=== PATIENT | female | born 1975 | race Two or more races ===

== ENCOUNTER 2023-07-16 17:48 | Inpatient (IN) | payer OTHER ==
[~2023-07-16] VITALS: Ht 152.4 cm; Wt 72.0 kg
[2023-07-16 18:48] LABS: Basophils # (auto) 0.1 10 ^3/uL (0-0.2); Eosinophils # (auto) 0 10 ^3/uL (0-0.8); Hematocrit 27.1 % (36.0-46.0); Hemoglobin 8.4 g/dL (12.2-16.2); Monocytes # (auto) 1.1 10 ^3/uL (0-1.3); Red Blood Cells 3.32 10^6/uL (4.0-5.20)
[2023-07-16 18:50] LABS: Basophils % (auto) 0.4 % (0.0-2.0); Lymphocytes # (auto) 1.4 10 ^3/uL (0.4-5.4); Mean Corpuscular Hemoglobin 25.2 pg (28.0-32.0); Mean Corpuscular Hgb Conc. 30.9 g/dL (32.0-36.0); Mean Corpuscular Volume 81.7 fL (80.0-100.0); Monocytes % (auto) 5.6 % (0.0-12.0); Neutrophils # (auto) 17.3 10 ^3/uL (1.6-8.6); Nucleated Red Blood Cells % 0.1 %; White Blood Cell 19.9 10^3/uL (4.4-10.8)
[2023-07-16 18:56] LABS: Red Cell Distribution Width 20.2 % (11.8-14.3)
[2023-07-16 19:04] LABS: Alanine Aminotransferase 223 U/L (7-40); Alkaline Phosphatase 127 U/L (46-116); Anion Gap 16 (5-15); Aspartate Aminotransferase 257 U/L (13-40); BUN/Creatinine Ratio 18.7 (10.0-20.0); Blood Alcohol < 3.0 mg/dL (<10); Blood Urea Nitrogen 67 mg/dL (9-23); Calcium 7.8 mg/dL (8.5-10.1); Carbon Dioxide 19 mmol/L (20-30); Chloride 111 mmol/L (98-107); Glucose 107 mg/dL (74-106); Potassium 3.6 mmol/L (3.5-5.1); Sodium 146 mmol/L (136-145)
[2023-07-16 19:05] LABS: Bilirubin, Total 0.7 mg/dL (0.2-1.0); Total Protein 5.7 g/dL (5.7-8.2)
[2023-07-16] MEDS: SODIUM CHLORIDE 0.9% 1,000 ML IV ONE (19:30)
[2023-07-16 19:33] VITALS: PULSE 106; RESP 26; O2SAT 100
[2023-07-16] MEDS: DEXTROSE 50% SYRINGE 50 ML IV ONE (20:23)
[2023-07-16] MEDS: PIPERACILLIN-TAZOB 3.375GM 100 ML IV ONE (20:32)
[2023-07-16] MEDS: D5W 5% 1,000 ML IV ONE (20:32)
[2023-07-16] MEDS: PIPERACILLIN-TAZOB 3.375GM 100 ML IV SCH (20:32)
[2023-07-16] MEDS: SODIUM CHLORIDE 0.9% 1,750 ML IV ONE (20:33)
[2023-07-16] MEDS: CALCIUM GLUC 1,000mg/50ml-NS 50 ML IV ONE (20:33)
[2023-07-16] MEDS ORDERED: DEXTROSE (50%) 50ML SYRG IV PRN (21:15)
[2023-07-16] MEDS ORDERED: ONDANSETRON HCL 4 MG/2 ML VIAL IV PRN (21:15)
[2023-07-16] MEDS ORDERED: DOCUSATE SOD 100 MG CAP PO PRN (21:15)
[2023-07-16] MEDS ORDERED: ACETAMINOPHEN 325 MG TAB PO PRN (21:15)
[2023-07-16] MEDS ORDERED: HYDROcodone-ACET 5/325MG TAB PO PRN (21:15)
[2023-07-16] MEDS: LACTATED RINGER'S 1,000 ML IV ONE (21:30)
[2023-07-16] MEDS: ACCU-CHEK COMFORT CURVE STRIP VI SCH (21:48)
[2023-07-16] MEDS ORDERED: ATORVASTATIN 20 MG TAB PO SCH (22:00)
[2023-07-16] MEDS: InsuLIN REG 1unit/0.01ml Soln (100units/ml) SC SCH (22:00)
[2023-07-16] MEDS ORDERED: NITROGLYCERIN 0.4 MG SL TAB SL PRN (22:45)
[2023-07-16] MEDS ORDERED: MORPHINE SULFATE INJ 2 MG/ml SYRG IV PRN (22:45)
[2023-07-16] MEDS: HEPARIN SODIUM (PORCINE) 5000 UNITS/ML 1ML VIAL SC SCH (23:18)
[2023-07-16] MEDS: levETIRAcetam 500 mg/100ml 100 ML IV SCH (23:18)
[2023-07-17] MEDS ORDERED: IBUPROFEN 600 MG TAB PO PRN
[2023-07-17 04:31] LABS: Urine Bacteria FEW /hpf (None Seen); Urine Blood 2+ /uL (Negative); Urine Clarity HAZY (Clear); Urine Color Colorless (Yellow); Urine Protein, UAD 2+ (Negative); Urine Urobilinogen Normal (Negative); Urine WBC 328 /hpf (0 - 5); Urine WBC Clumps PRESENT /hpf (None Seen); Urine pH 6.5 (5.0-8.0)
[2023-07-17] MEDS: LACTULOSE 20Gm/30ML SOLN PO SCH (04:46)
[2023-07-17] MEDS: InsuLIN REG 1unit/0.01ml Soln (100units/ml) SC SCH (06:30)
[2023-07-17 06:55] LABS: Basophils # (auto) 0.1 10 ^3/uL (0-0.2); Basophils % (auto) 0.4 % (0.0-2.0); Eosinophils # (auto) 0 10 ^3/uL (0-0.8); Hemoglobin 7.3 g/dL (12.2-16.2); Lymphocytes # (auto) 1.4 10 ^3/uL (0.4-5.4); Monocytes # (auto) 0.9 10 ^3/uL (0-1.3); Red Cell Distribution Width 20.2 % (11.8-14.3)
[2023-07-17 06:59] LABS: Eosinophils % (auto) 0.1 % (0.0-7.0); Lymphocytes % (auto) 7.9 % (10.0-50.0); Mean Corpuscular Hemoglobin 26.1 pg (28.0-32.0); Mean Corpuscular Hgb Conc. 31.6 g/dL (32.0-36.0); Mean Corpuscular Volume 82.5 fL (80.0-100.0); Monocytes % (auto) 5.3 % (0.0-12.0); Neutrophils # (auto) 14.9 10 ^3/uL (1.6-8.6); Neutrophils % (auto) 86.3 % (37.0-80.0); Red Blood Cells 2.79 10^6/uL (4.0-5.20); White Blood Cell 17.3 10^3/uL (4.4-10.8)
[2023-07-17 07:10] LABS: Alanine Aminotransferase 173 U/L (7-40); Albumin 2.6 g/dL (3.2-4.8); Alkaline Phosphatase 126 U/L (46-116); Anion Gap 15 (5-15); Aspartate Aminotransferase 186 U/L (13-40); BUN/Creatinine Ratio 17.5 (10.0-20.0); Bilirubin, Total 0.8 mg/dL (0.2-1.0); Blood Urea Nitrogen 59 mg/dL (9-23); Calcium 7.1 mg/dL (8.5-10.1); Carbon Dioxide 17 mmol/L (20-30); Chloride 116 mmol/L (98-107); Glucose 150 mg/dL (74-106); Potassium 3.1 mmol/L (3.5-5.1); Sodium 148 mmol/L (136-145)
[2023-07-17 09:58] VITALS: PULSE 103; RESP 22; O2SAT 98
[2023-07-17] MEDS ORDERED: LORazepam 2MG/ML-1ML VIAL IV PRN (10:00)
[2023-07-17] MEDS: POTASSIUM CHL 20MEQ/100ML 100 ML IV SCH (10:10)
[2023-07-17] MEDS: ASPirin 81 mg TAB PO SCH (10:10)
[2023-07-17] MEDS: POTASSIUM CHL 20 Meq TABLET PO ONE (10:11)
[2023-07-17] MEDS: MULTIPLE VITAMIN TAB PO SCH (10:13)
[2023-07-17 12:01] LABS: Magnesium 1.4 mg/dL (1.6-2.6)
[2023-07-17 12:03] LABS: Phosphorus 4.8 mg/dL (2.4-5.1)
[2023-07-17] MEDS: hydrALAZINE HCL 20 MG/ML VL IV PRN (12:34)
[2023-07-17] MEDS: MAGNESIUM SULFATE 1GM/100ML 100 ML IV SCH (15:13)
[2023-07-17 19:30] VITALS: PULSE 105; RESP 22; O2SAT 95
[2023-07-18] VITALS (23 sets, daily range): BP systolic 123–183; BP diastolic 56–122; PULSE 85–101; RESP 16–25; TEMP 97.6–99.6; O2SAT 99–100
[2023-07-18 05:40] LABS: Chloride 118 mmol/L (98-107); Potassium 3.8 mmol/L (3.5-5.1); Sodium 150 mmol/L (136-145)
[2023-07-18 05:41] LABS: Anion Gap 14 (5-15); Calcium 7.6 mg/dL (8.7-10.4); Carbon Dioxide 18 mmol/L (20-30)
[2023-07-18 05:46] LABS: BUN/Creatinine Ratio 13.9 (10.0-20.0); Glucose 125 mg/dL (74-106)
[2023-07-18 05:47] LABS: Magnesium 2.1 mg/dL (1.6-2.6)
[2023-07-18 05:49] LABS: Blood Urea Nitrogen 47 mg/dL (9-23); Hematocrit 25.9 % (36.0-46.0); Hemoglobin 7.9 g/dL (12.2-16.2); Mean Corpuscular Hemoglobin 25.7 pg (28.0-32.0); Mean Corpuscular Hgb Conc. 30.7 g/dL (32.0-36.0); Mean Corpuscular Volume 83.6 fL (80.0-100.0); Red Blood Cells 3.09 10^6/uL (4.0-5.20)
[2023-07-18 06:00] LABS: Red Cell Distribution Width 20.1 % (11.8-14.3)
[2023-07-18 06:02] LABS: Basophils % (manual) 0 (0.0-2.0); Blast Cells 0; Eosinophils % (manual) 0 (0-7); Myelocytes % 0; Promyelocytes % 0; Reactive Lymphocytes 0
[2023-07-18] MEDS: CALCIUM GLUC 1,000mg/50ml-NS 50 ML IV ONE (06:32)
[2023-07-18 07:29] LABS: INR 1.04 (0.9-1.15); Partial Thromboplastin Time 28.4 SEC (24.5-34.5); Prothrombin Time 10.9 sec (9.3-11.8)
[2023-07-18 08:06] LABS: Complement C3 143 mg/dL (82-167)
[2023-07-18 12:33] LABS: Band Neutrophils % (manual) 4; Lymphocytes % (manual) 13 (10.0-50.0); Metamyelocytes % 2; Monocytes % (manual) 5 (0-12)
[2023-07-18 12:34] LABS: Platelet Estimate Adequate
[2023-07-18] MEDS ORDERED: LORazepam 2MG/ML-1ML VIAL IV PRN (17:00)
[2023-07-18] MEDS: D5W 5% 1,000 ML IV SCH (19:29)
[2023-07-18] MEDS: SODIUM BICARB 8.4% 50Meq/50ml SYR Vial IV ONE (19:29)
[2023-07-18] MEDS: ETOMIDATE (2MG/ML) 20ML VIAL IV ONE ×2 (19:55→23:38)
[2023-07-18] MEDS ORDERED: LISI10TA34 PO (19:56)
[2023-07-18] MEDS ORDERED: NIFE1TAB31 PO (19:56)
[2023-07-18] MEDS ORDERED: GLIP10TA9 PO (19:56)
[2023-07-18] MEDS ORDERED: LOSA-534 PO (19:56)
[2023-07-18] MEDS ORDERED: FURO40TA4 PO (19:56)
[2023-07-18] MEDS ORDERED: ATOR-47 PO (19:56)
[2023-07-18] MEDS ORDERED: LEVO500T91 PO (19:56)
[2023-07-18] MEDS ORDERED: CLOP75TA70 PO (19:56)
[2023-07-18] MEDS: SUCCINYLCHOLINE CHLORIDE 20 MG/ML 10ML VIAL IV ONE (19:56)
[2023-07-18] MEDS ORDERED: HYDR12.59 PO (19:56)
[2023-07-18] MEDS ORDERED: LEVE500T3 PO (19:56)
[2023-07-18] MEDS ORDERED: METF-370 PO (19:56)
[2023-07-18 20:48] LABS: Base Excess -4.7 mmol/L (-2.0-2.0)
[2023-07-18 21:04] LABS: Basophils # (auto) 0.1 10 ^3/uL (0-0.2); Eosinophils # (auto) 0 10 ^3/uL (0-0.8); Hematocrit 22.5 % (36.0-46.0); Lymphocytes # (auto) 1.9 10 ^3/uL (0.4-5.4); Mean Corpuscular Hemoglobin 25.2 pg (28.0-32.0); Mean Corpuscular Hgb Conc. 30.8 g/dL (32.0-36.0); Monocytes % (auto) 7.1 % (0.0-12.0); Red Blood Cells 2.75 10^6/uL (4.0-5.20)
[2023-07-18 21:05] LABS: Basophils % (auto) 0.5 % (0.0-2.0); Eosinophils % (auto) 0.2 % (0.0-7.0); Lymphocytes % (auto) 13.4 % (10.0-50.0); Mean Corpuscular Volume 81.8 fL (80.0-100.0); Neutrophils # (auto) 11.2 10 ^3/uL (1.6-8.6); Neutrophils % (auto) 78.8 % (37.0-80.0); Red Cell Distribution Width 19.8 % (11.8-14.3); White Blood Cell 14.2 10^3/uL (4.4-10.8)
[2023-07-18 21:10] LABS: Hemoglobin 6.9 g/dL (12.2-16.2)
[2023-07-18 21:13] LABS: Chloride 120 mmol/L (98-107); Potassium 3.1 mmol/L (3.5-5.1); Sodium 153 mmol/L (136-145)
[2023-07-18 21:14] LABS: Anion Gap 14 (5-15); Calcium 7.8 mg/dL (8.7-10.4); Carbon Dioxide 19 mmol/L (20-30)
[2023-07-18 21:19] LABS: BUN/Creatinine Ratio 13.6 (10.0-20.0); Blood Urea Nitrogen 48 mg/dL (9-23); Glucose 113 mg/dL (74-106); INR 1.02 (0.9-1.15); Partial Thromboplastin Time 28.5 SEC (24.5-34.5); Prothrombin Time 10.7 sec (9.3-11.8)
[2023-07-18] MEDS: ENALAPRILAT 1.25 MG/ML-1ML VIAL IV ONE (21:38)
[2023-07-18] MEDS: ROCURONIUM 10MG/ML 10ML VIAL IV ONE (23:38)
[2023-07-19] VITALS (103 sets, daily range): BP systolic 108–188; BP diastolic 57–162; PULSE 79–99; RESP 10–38; TEMP 98–98.9; O2SAT 99–100
[2023-07-19 04:15] LABS: Amphetamine Screen, Urine Neg (NEGATIVE)
[2023-07-19 04:16] LABS: Barbiturate Scree,Urine Neg (NEGATIVE); Benzodiazephine Screen, Urine Neg (NEGATIVE); Cannabinoid Screen, Urine Neg (NEGATIVE); Cocaine Screen, Urine Neg (NEGATIVE); Opiate Scree,Urine Neg (NEGATIVE); Phencyclidine Screen, Urine Neg (NEGATIVE)
[2023-07-19 04:28] LABS: Creatinine, Urine 36.21 mg/dL (30.0-125.0)
[2023-07-19 04:30] LABS: Protein, Urine 291.9 mg/dL (0.0-11.9)
[2023-07-19 04:52] LABS: Chloride 119 mmol/L (98-107); Potassium 3.4 mmol/L (3.5-5.1); Sodium 153 mmol/L (136-145)
[2023-07-19 04:53] LABS: Anion Gap 14 (5-15); Calcium 8.1 mg/dL (8.5-10.1); Carbon Dioxide 20 mmol/L (20-30)
[2023-07-19 04:58] LABS: BUN/Creatinine Ratio 10.7 (10.0-20.0); Blood Urea Nitrogen 39 mg/dL (9-23); Glucose 201 mg/dL (74-106)
[2023-07-19 05:01] LABS: Hematocrit 31.2 % (36.0-46.0); Mean Corpuscular Hemoglobin 27.1 pg (28.0-32.0); Mean Corpuscular Volume 84.7 fL (80.0-100.0); Red Blood Cells 3.68 10^6/uL (4.0-5.20); Red Cell Distribution Width 18.3 % (11.8-14.3); White Blood Cell 16.8 10^3/uL (4.4-10.8)
[2023-07-19 05:04] LABS: Basophils % (manual) 0 (0.0-2.0); Blast Cells 0; Eosinophils % (manual) 0 (0-7); Metamyelocytes % 0; Myelocytes % 0; Promyelocytes % 0; Reactive Lymphocytes 0
[2023-07-19] MEDS: POTASSIUM CHL 20MEQ/100ML 100 ML IV ONE (05:15)
[2023-07-19 06:33] LABS: Anisocytosis Slight; Band Neutrophils % (manual) 6; Large Platelets FEW; Lymphocytes % (manual) 9 (10.0-50.0); Monocytes % (manual) 3 (0-12); Platelet Estimate Adequate
[2023-07-19 08:26] LABS: Base Excess -5.2 mmol/L (-2.0-2.0)
[2023-07-19 09:12] LABS: Hepatitis B Surface Antibody Negative (Negative)
[2023-07-19 09:22] LABS: Hepatitis B Surface Antigen Negative (Negative)
[2023-07-19 09:44] LABS: Hepatitis A Ab IgM Negative
[2023-07-19 10:07] LABS: Anti-Centromere B Antibody <0.2 AI (0.0-0.9); Anti-Jo-1 Antibody <0.2 AI (0.0-0.9); Anti-dsDNA Antibody 1 IU/mL (0-9); Antichromatin Antibody <0.2 AI (0.0-0.9); Antiscleroderma-70 Antibody <0.2 AI (0.0-0.9); RNP Antibody 0.2 AI (0.0-0.9); Sjogren's Anti-SS-A Antibody <0.2 AI (0.0-0.9); Sjogren's Anti-SS-B Antibody <0.2 AI (0.0-0.9); Smith Antibody <0.2 AI (0.0-0.9)
[2023-07-19 11:34] LABS: Hepatitis C Antibody Positive (Negative)
[2023-07-19] MEDS: ERTAPENEM SOD INJ 1 GM in SODIUM CHL 0.9% 50 ML IV ONE (15:28)
[2023-07-19] MEDS: D5W 5% 1,000 ML IV SCH (15:31)
[2023-07-19] MEDS: THIAMINE 100mg/ml INJ (200mg/2ml VIAL) IV ONE (16:24)
[2023-07-19] MEDS: LIDOCAINE 1% (LOCAL ANESTH.) PF 5ml SDV ID ONE (16:50)
[2023-07-19] MEDS: InsuLIN REG 1unit/0.01ml Soln (100units/ml) SC SCH (18:22)
[2023-07-19] MEDS: ACCU-CHEK COMFORT CURVE STRIP VI SCH (18:30)
[2023-07-19] MEDS: SODIUM CHLOR 0.9% PF (SALINE LOCK) 10ML VIAL/SYR IV SCH (21:58)
[2023-07-19] MEDS: LACTULOSE 20Gm/30ML SOLN PO SCH (21:58)
[2023-07-19] MEDS: MUPIROCIN 2% OINT 15gm or 22gm FOR MRSA NARES EACHNOSTRI SCH (21:59)
[2023-07-20] VITALS (107 sets, daily range): BP systolic 105–169; BP diastolic 50–123; PULSE 69–83; RESP 10–25; TEMP 98–99; O2SAT 100
[2023-07-20 04:12] LABS: Basophils # (auto) 0.1 10 ^3/uL (0-0.2); Basophils % (auto) 0.8 % (0.0-2.0); Eosinophils # (auto) 0.2 10 ^3/uL (0-0.8); Eosinophils % (auto) 2.5 % (0.0-7.0); Hematocrit 23.2 % (36.0-46.0); Hemoglobin 7.6 g/dL (12.2-16.2); Lymphocytes # (auto) 1.6 10 ^3/uL (0.4-5.4); Lymphocytes % (auto) 16.1 % (10.0-50.0); Mean Corpuscular Hgb Conc. 32.7 g/dL (32.0-36.0); Mean Corpuscular Volume 82.6 fL (80.0-100.0); Monocytes # (auto) 0.9 10 ^3/uL (0-1.3); Monocytes % (auto) 8.9 % (0.0-12.0); Neutrophils # (auto) 7.1 10 ^3/uL (1.6-8.6); Neutrophils % (auto) 71.7 % (37.0-80.0); Red Blood Cells 2.82 10^6/uL (4.0-5.20); Red Cell Distribution Width 17.6 % (11.8-14.3); White Blood Cell 9.9 10^3/uL (4.4-10.8)
[2023-07-20 04:32] LABS: Alanine Aminotransferase 67 U/L (7-40); Albumin 2.6 g/dL (3.2-4.8); Alkaline Phosphatase 104 U/L (46-116); Anion Gap 11 (5-15); Aspartate Aminotransferase 71 U/L (13-40); BUN/Creatinine Ratio 11.1 (10.0-20.0); Bilirubin, Total 0.3 mg/dL (0.2-1.0); Blood Urea Nitrogen 37 mg/dL (9-23); Calcium 7.6 mg/dL (8.5-10.1); Carbon Dioxide 20 mmol/L (20-30); Chloride 116 mmol/L (98-107); Glucose 140 mg/dL (74-106); Potassium 2.9 mmol/L (3.5-5.1); Total Protein 5.4 g/dL (5.7-8.2)
[2023-07-20 04:45] LABS: Sodium 147 mmol/L (136-145)
[2023-07-20 05:53] LABS: Base Excess -6.7 mmol/L (-2.0-2.0)
[2023-07-20] MEDS: POTASSIUM CHL 20MEQ/100ML 100 ML IV ONE ×2 (06:20→10:56)
[2023-07-20] MEDS: ERTAPENEM SOD INJ 0.5 GM in SODIUM CHL 0.9% 50 ML IV SCH (10:00)
[2023-07-20] MEDS: THIAMINE 100mg/ml INJ (200mg/2ml VIAL) IV SCH (10:53)
[2023-07-20] MEDS: CHOLECALCIFEROL (VITD3) 2,000 UNIT CAP/TAB PO SCH (11:02)
[2023-07-20 13:07] LABS: Cytoplasmic (C-ANCA) <1:20 titer (Neg:<1:20); Perinuclear (P-ANCA) <1:20 titer (Neg:<1:20)
[2023-07-20 18:06] LABS: Antiglomerular BM Antibody <0.2 units (0.0-0.9); Antimyeloperoxidase (MPO) Ab <0.2 units (0.0-0.9); Antiproteinase 3 (PR-3) Ab <0.2 units (0.0-0.9)
[2023-07-21] VITALS (106 sets, daily range): BP systolic 99–187; BP diastolic 27–136; PULSE 76–88; RESP 13–29; TEMP 98.4–99; O2SAT 99–100
[2023-07-21 04:04] LABS: Chloride 112 mmol/L (98-107); Potassium 3.3 mmol/L (3.5-5.1); Sodium 141 mmol/L (136-145)
[2023-07-21 04:05] LABS: Anion Gap 12 (5-15); Calcium 7.4 mg/dL (8.7-10.4); Carbon Dioxide 17 mmol/L (20-30)
[2023-07-21 04:10] LABS: BUN/Creatinine Ratio 9.1 (10.0-20.0); Glucose 117 mg/dL (74-106); Magnesium 1.6 mg/dL (1.6-2.6)
[2023-07-21 04:29] LABS: Blood Urea Nitrogen 27 mg/dL (9-23)
[2023-07-21] MEDS: POTASSIUM CHL 20MEQ/100ML 100 ML IV SCH (05:07)
[2023-07-21 06:59] LABS: Basophils # (auto) 0.1 10 ^3/uL (0-0.2); Eosinophils # (auto) 0.2 10 ^3/uL (0-0.8); Hemoglobin 7.9 g/dL (12.2-16.2); Lymphocytes # (auto) 1.5 10 ^3/uL (0.4-5.4); Mean Corpuscular Volume 83.2 fL (80.0-100.0); Monocytes # (auto) 0.9 10 ^3/uL (0-1.3)
[2023-07-21 07:01] LABS: Basophils % (auto) 0.8 % (0.0-2.0); Eosinophils % (auto) 2.4 % (0.0-7.0); Lymphocytes % (auto) 16.5 % (10.0-50.0); Mean Corpuscular Hemoglobin 27.4 pg (28.0-32.0); Monocytes % (auto) 9.3 % (0.0-12.0); Neutrophils # (auto) 6.6 10 ^3/uL (1.6-8.6); Nucleated Red Blood Cells % 0.2 %; Red Blood Cells 2.88 10^6/uL (4.0-5.20); Red Cell Distribution Width 17.7 % (11.8-14.3); White Blood Cell 9.3 10^3/uL (4.4-10.8)
[2023-07-21] MEDS ORDERED: SODIUM BICARB 50mEq/50ml Vial 50 ML in D5W 5% 1,000 ML IV SCH (11:30)
[2023-07-21] MEDS: MAGNESIUM SULFATE 1GM/100ML 100 ML IV SCH (12:15)
[2023-07-21] MEDS: SODIUM BICARB 50mEq/50ml Vial 50 ML in D5W 5% 1,000 ML IV SCH (14:30)
[2023-07-21] MEDS: POTASSIUM EFFERVESENT TAB 25 MEQ GT ONE (14:46)
[2023-07-21] MEDS: Nepro With Carb Steady 1 Liter Bottle GT SCH (20:27)
[2023-07-22] VITALS (56 sets, daily range): BP systolic 114–171; BP diastolic 58–108; PULSE 81–92; RESP 13–26; TEMP 98.8–99; O2SAT 98–100
[2023-07-22 04:41] LABS: Hematocrit 24.7 % (36.0-46.0); Hemoglobin 8.2 g/dL (12.2-16.2); Mean Corpuscular Volume 81.6 fL (80.0-100.0); Red Blood Cells 3.03 10^6/uL (4.0-5.20); Red Cell Distribution Width 17.9 % (11.8-14.3); White Blood Cell 9.1 10^3/uL (4.4-10.8)
[2023-07-22 04:51] LABS: Basophils % (manual) 0 (0.0-2.0); Blast Cells 0; Metamyelocytes % 0; Myelocytes % 0; Promyelocytes % 0; Reactive Lymphocytes 0
[2023-07-22 05:03] LABS: Alanine Aminotransferase 40 U/L (7-40); Albumin 2.6 g/dL (3.2-4.8); Alkaline Phosphatase 86 U/L (46-116); Anion Gap 9 (5-15); Aspartate Aminotransferase 62 U/L (13-40); BUN/Creatinine Ratio 9.1 (10.0-20.0); Bilirubin, Total 0.2 mg/dL (0.2-1.0); Blood Urea Nitrogen 24 mg/dL (9-23); Calcium 7.7 mg/dL (8.5-10.1); Carbon Dioxide 21 mmol/L (20-30); Chloride 112 mmol/L (98-107); Glucose 100 mg/dL (74-106); Potassium 4.2 mmol/L (3.5-5.1); Sodium 142 mmol/L (136-145); Total Protein 5.6 g/dL (5.7-8.2)
[2023-07-22 06:15] LABS: Band Neutrophils % (manual) 2; Eosinophils % (manual) 3 (0-7); Lymphocytes % (manual) 21 (10.0-50.0); Monocytes % (manual) 9 (0-12); Platelet Estimate Adequate
[2023-07-22 06:17] LABS: Hypochromia Slight
[2023-07-22 06:19] LABS: Anisocytosis Slight
[2023-07-22 08:27] LABS: Base Excess -3.9 mmol/L (-2.0-2.0)
[2023-07-22] MEDS: MAGNESIUM SULFATE 1GM/100ML 100 ML IV ONE (16:25)
[2023-07-22] MEDS: SOD CHL 0.45% 1,000 ML IV SCH (16:25)
[2023-07-22 16:26] LABS: Protein, CSF 27.3 mg/dL (15-45)
[2023-07-22] MEDS: ALBUMIN 25% 100 ML IV SCH (16:26)
[2023-07-22 16:55] LABS: Description,CSF CLEAR
[2023-07-22 16:56] LABS: CSF White Blood Cells 0 CUMM (0-5)
[2023-07-22] MEDS: BUMETANIDE 2.5mg/10ml (0.25 mg/ml) INJ IV SCH (18:06)
[2023-07-22] MEDS: levETIRAcetam 1000 mg/100ml 100 ML IV SCH (21:37)
[2023-07-23] VITALS (60 sets, daily range): BP systolic 113–169; BP diastolic 53–130; PULSE 84–106; RESP 14–27; TEMP 98.7–99.9; O2SAT 97–100
[2023-07-23 07:01] LABS: Base Excess -0.9 mmol/L (-2.0-2.0)
[2023-07-23 08:35] LABS: Chloride 111 mmol/L (98-107); Potassium 3.3 mmol/L (3.5-5.1); Sodium 145 mmol/L (136-145)
[2023-07-23 08:36] LABS: Anion Gap 9 (5-15); Calcium 8.2 mg/dL (8.5-10.1); Carbon Dioxide 25 mmol/L (20-30)
[2023-07-23 08:41] LABS: BUN/Creatinine Ratio 9.7 (10.0-20.0); Blood Urea Nitrogen 24 mg/dL (9-23); Glucose 105 mg/dL (74-106)
[2023-07-23 09:26] LABS: Basophils # (auto) 0.1 10 ^3/uL (0-0.2); Eosinophils # (auto) 0.2 10 ^3/uL (0-0.8); Eosinophils % (auto) 2.2 % (0.0-7.0); Hematocrit 20.5 % (36.0-46.0); Lymphocytes # (auto) 1.7 10 ^3/uL (0.4-5.4); Lymphocytes % (auto) 18.9 % (10.0-50.0); Mean Corpuscular Volume 81.4 fL (80.0-100.0); Red Cell Distribution Width 17.6 % (11.8-14.3)
[2023-07-23 09:28] LABS: Mean Corpuscular Hemoglobin 26.8 pg (28.0-32.0); Mean Corpuscular Hgb Conc. 32.9 g/dL (32.0-36.0); Monocytes # (auto) 0.8 10 ^3/uL (0-1.3); Monocytes % (auto) 8.3 % (0.0-12.0); Neutrophils # (auto) 6.4 10 ^3/uL (1.6-8.6); Neutrophils % (auto) 69.6 % (37.0-80.0); Red Blood Cells 2.52 10^6/uL (4.0-5.20); White Blood Cell 9.1 10^3/uL (4.4-10.8)
[2023-07-23 09:41] LABS: Hemoglobin 6.8 g/dL (12.2-16.2)
[2023-07-23] MEDS: POTASSIUM CHL 20MEQ/100ML 100 ML IV SCH (09:53)
[2023-07-23] MEDS: PANTOPRAZOLE 40 MG/10 ML VIAL INJ IV ONE (12:53)
[2023-07-23] MEDS: PANTOPRAZOLE 40 MG/10 ML VIAL INJ IV SCH (22:01)
[2023-07-24] VITALS (67 sets, daily range): BP systolic 82–194; BP diastolic 47–88; PULSE 83–107; RESP 11–35; TEMP 97.9–98.5; O2SAT 94–100
[2023-07-24 04:17] LABS: Basophils # (auto) 0.1 10 ^3/uL (0-0.2); Basophils % (auto) 0.7 % (0.0-2.0); Eosinophils # (auto) 0.3 10 ^3/uL (0-0.8); Eosinophils % (auto) 2.2 % (0.0-7.0); Hematocrit 28.7 % (36.0-46.0); Hemoglobin 9.5 g/dL (12.2-16.2); Lymphocytes # (auto) 2.4 10 ^3/uL (0.4-5.4); Lymphocytes % (auto) 18.2 % (10.0-50.0); Mean Corpuscular Hemoglobin 27.6 pg (28.0-32.0); Mean Corpuscular Hgb Conc. 32.9 g/dL (32.0-36.0); Mean Corpuscular Volume 83.8 fL (80.0-100.0); Monocytes # (auto) 0.8 10 ^3/uL (0-1.3); Monocytes % (auto) 6.2 % (0.0-12.0); Neutrophils # (auto) 9.8 10 ^3/uL (1.6-8.6); Neutrophils % (auto) 72.7 % (37.0-80.0); Red Blood Cells 3.43 10^6/uL (4.0-5.20); Red Cell Distribution Width 16.6 % (11.8-14.3); White Blood Cell 13.4 10^3/uL (4.4-10.8)
[2023-07-24 04:30] LABS: Anion Gap 8 (5-15); Carbon Dioxide 23 mmol/L (20-30); Chloride 113 mmol/L (98-107); Potassium 3.8 mmol/L (3.5-5.1); Sodium 144 mmol/L (136-145)
[2023-07-24 04:32] LABS: Calcium 7.9 mg/dL (8.7-10.4)
[2023-07-24 04:36] LABS: BUN/Creatinine Ratio 9.4 (10.0-20.0); Blood Urea Nitrogen 22 mg/dL (9-23); Glucose 104 mg/dL (74-106)
[2023-07-24] MEDS: hydrALAZINE HCL 20 MG/ML VL IV ONE (06:01)
[2023-07-24 07:07] LABS: Base Excess -5.1 mmol/L (-2.0-2.0)
[2023-07-24] MEDS: amLODIPine BESYLATE 5 MG TAB PO SCH (10:49)
[2023-07-24 15:28] LABS: Base Excess -4.7 mmol/L (-2.0-2.0)
[2023-07-24] MEDS: ALBUTEROL SULF 2.5 MG/0.5ML(0.5%) NEB SOLN ONE (16:43)
[2023-07-24] MEDS: IPRATROPIUM BROM 0.5 MG/2.5ML INH SOL NEB SCH (18:09)
[2023-07-24] MEDS: ALBUTEROL SULF 2.5 MG/0.5ML(0.5%) NEB SOLN NEB ONE (18:09)
[2023-07-24] MEDS: ALBUTEROL SULF 2.5 MG/0.5ML(0.5%) NEB SOLN NEB SCH (22:08)
[2023-07-25] VITALS (58 sets, daily range): BP systolic 86–160; BP diastolic 42–90; PULSE 91–114; RESP 14–28; TEMP 97.5–99.4; O2SAT 57–100
[2023-07-25 04:16] LABS: Basophils # (auto) 0.1 10 ^3/uL (0-0.2); Basophils % (auto) 0.5 % (0.0-2.0); Eosinophils # (auto) 0 10 ^3/uL (0-0.8); Eosinophils % (auto) 0.2 % (0.0-7.0); Hematocrit 26.8 % (36.0-46.0); Hemoglobin 8.8 g/dL (12.2-16.2); Lymphocytes # (auto) 1.7 10 ^3/uL (0.4-5.4); Lymphocytes % (auto) 10.2 % (10.0-50.0); Mean Corpuscular Hemoglobin 27.3 pg (28.0-32.0); Mean Corpuscular Hgb Conc. 32.9 g/dL (32.0-36.0); Monocytes # (auto) 0.8 10 ^3/uL (0-1.3); Monocytes % (auto) 4.9 % (0.0-12.0); Neutrophils # (auto) 13.6 10 ^3/uL (1.6-8.6); Neutrophils % (auto) 84.2 % (37.0-80.0); Nucleated Red Blood Cells % 0.1 %; Red Blood Cells 3.23 10^6/uL (4.0-5.20); Red Cell Distribution Width 16.1 % (11.8-14.3); White Blood Cell 16.1 10^3/uL (4.4-10.8)
[2023-07-25 04:23] LABS: Alanine Aminotransferase 16 U/L (7-40); Albumin 3.1 g/dL (3.2-4.8); Alkaline Phosphatase 78 U/L (46-116); Anion Gap 7 (5-15); Aspartate Aminotransferase 54 U/L (13-40); Blood Urea Nitrogen 23 mg/dL (9-23); Calcium 7.8 mg/dL (8.7-10.4); Carbon Dioxide 21 mmol/L (20-30); Chloride 114 mmol/L (98-107); Glucose 121 mg/dL (74-106); Potassium 3.5 mmol/L (3.5-5.1); Sodium 142 mmol/L (136-145)
[2023-07-25 04:24] LABS: Bilirubin, Total 0.2 mg/dL (0.2-1.0); Total Protein 5.9 g/dL (5.7-8.2)
[2023-07-25 07:30] LABS: Base Excess -6.8 mmol/L (-2.0-2.0)
[2023-07-25] MEDS: SODIUM CHLORIDE 0.9% 500 ML IV ONE (11:15)
[2023-07-25] MEDS: NOREPINEPHRINE 8 MG/250ML KIT 250 ML IV SCH (11:30)
[2023-07-26] VITALS (40 sets, daily range): BP systolic 100–177; BP diastolic 60–88; PULSE 97–110; RESP 12–30; TEMP 98–98.8; O2SAT 94–100
[2023-07-26 03:55] LABS: Basophils # (auto) 0.1 10 ^3/uL (0-0.2); Basophils % (auto) 0.5 % (0.0-2.0); Eosinophils # (auto) 0.2 10 ^3/uL (0-0.8); Eosinophils % (auto) 1.1 % (0.0-7.0); Hematocrit 25.3 % (36.0-46.0); Hemoglobin 8.2 g/dL (12.2-16.2); Lymphocytes # (auto) 1.8 10 ^3/uL (0.4-5.4); Lymphocytes % (auto) 13.1 % (10.0-50.0); Mean Corpuscular Hemoglobin 27.4 pg (28.0-32.0); Mean Corpuscular Hgb Conc. 32.4 g/dL (32.0-36.0); Mean Corpuscular Volume 84.7 fL (80.0-100.0); Monocytes # (auto) 0.6 10 ^3/uL (0-1.3); Monocytes % (auto) 4.4 % (0.0-12.0); Neutrophils # (auto) 11.2 10 ^3/uL (1.6-8.6); Neutrophils % (auto) 80.9 % (37.0-80.0); Red Blood Cells 2.98 10^6/uL (4.0-5.20); Red Cell Distribution Width 16.1 % (11.8-14.3); White Blood Cell 13.8 10^3/uL (4.4-10.8)
[2023-07-26 04:13] LABS: Alanine Aminotransferase 14 U/L (7-40); Alkaline Phosphatase 64 U/L (46-116); Anion Gap 10 (5-15); Blood Urea Nitrogen 20 mg/dL (9-23); Calcium 6.9 mg/dL (8.7-10.4); Carbon Dioxide 17 mmol/L (20-30); Chloride 113 mmol/L (98-107); Glucose 67 mg/dL (74-106); Sodium 140 mmol/L (136-145)
[2023-07-26 04:14] LABS: Albumin 2.7 g/dL (3.2-4.8); Aspartate Aminotransferase 53 U/L (13-40); Bilirubin, Total 0.2 mg/dL (0.2-1.0); Total Protein 5.3 g/dL (5.7-8.2)
[2023-07-26] MEDS: POTASSIUM CHL 20MEQ/100ML 100 ML IV ONE (05:31)
[2023-07-26 14:06] LABS: Albumin, CSF 11 mg/dL (8-37); IgG, Quant, CSF 3.6 mg/dL (0.0-6.7); IgG/Alb Ratio, CSF 0.33 (0.00-0.25)
[2023-07-26] MEDS: POTASSIUM CHL 20MEQ/100ML 100 ML IV SCH (14:38)
[2023-07-27] VITALS (37 sets, daily range): BP systolic 120–168; BP diastolic 57–88; PULSE 92–107; RESP 11–23; TEMP 97.5–98.2; O2SAT 94–100
[2023-07-27] MEDS: DEXTROSE (50%) 50ML SYRG IV PRN (00:05)
[2023-07-27 04:05] LABS: Basophils # (auto) 0.1 10 ^3/uL (0-0.2); Basophils % (auto) 0.7 % (0.0-2.0); Eosinophils # (auto) 0.2 10 ^3/uL (0-0.8); Eosinophils % (auto) 1.3 % (0.0-7.0); Hematocrit 27.4 % (36.0-46.0); Hemoglobin 8.8 g/dL (12.2-16.2); Lymphocytes # (auto) 1.9 10 ^3/uL (0.4-5.4); Lymphocytes % (auto) 13.4 % (10.0-50.0); Mean Corpuscular Hemoglobin 27.3 pg (28.0-32.0); Mean Corpuscular Hgb Conc. 32.1 g/dL (32.0-36.0); Monocytes # (auto) 0.7 10 ^3/uL (0-1.3); Monocytes % (auto) 4.8 % (0.0-12.0); Neutrophils # (auto) 11.3 10 ^3/uL (1.6-8.6); Neutrophils % (auto) 79.8 % (37.0-80.0); Red Blood Cells 3.23 10^6/uL (4.0-5.20); Red Cell Distribution Width 16.5 % (11.8-14.3); White Blood Cell 14.2 10^3/uL (4.4-10.8)
[2023-07-27 04:07] LABS: Anion Gap 10 (5-15); Carbon Dioxide 17 mmol/L (20-30); Chloride 119 mmol/L (98-107); Potassium 3.9 mmol/L (3.5-5.1)
[2023-07-27 04:08] LABS: Calcium 7.9 mg/dL (8.7-10.4)
[2023-07-27 04:13] LABS: BUN/Creatinine Ratio 8.3 (10.0-20.0); Blood Urea Nitrogen 20 mg/dL (9-23); Glucose 64 mg/dL (74-106)
[2023-07-27 04:17] LABS: Sodium 146 mmol/L (136-145)
[2023-07-27] MEDS: D5W/SOD CHL 0.45% 1,000 ML IV SCH (15:55)
[2023-07-27 17:06] LABS: CAP Mandated Reflex to Culture Not Indicated (.); Cryptococcus Antigen CSF Negative (Negative)
[2023-07-28] VITALS (49 sets, daily range): BP systolic 81–157; BP diastolic 43–82; PULSE 85–109; RESP 11–24; TEMP 98.1–98.9; O2SAT 95–100
[2023-07-28 03:44] LABS: Basophils # (auto) 0.1 10 ^3/uL (0-0.2); Basophils % (auto) 0.8 % (0.0-2.0); Eosinophils # (auto) 0.2 10 ^3/uL (0-0.8); Eosinophils % (auto) 1.7 % (0.0-7.0); Hematocrit 26.2 % (36.0-46.0); Hemoglobin 8.5 g/dL (12.2-16.2); Lymphocytes # (auto) 1.7 10 ^3/uL (0.4-5.4); Lymphocytes % (auto) 12.9 % (10.0-50.0); Mean Corpuscular Hemoglobin 27.3 pg (28.0-32.0); Mean Corpuscular Hgb Conc. 32.4 g/dL (32.0-36.0); Mean Corpuscular Volume 84.3 fL (80.0-100.0); Monocytes # (auto) 0.7 10 ^3/uL (0-1.3); Monocytes % (auto) 5.5 % (0.0-12.0); Neutrophils # (auto) 10.2 10 ^3/uL (1.6-8.6); Neutrophils % (auto) 79.1 % (37.0-80.0); Red Blood Cells 3.11 10^6/uL (4.0-5.20); Red Cell Distribution Width 16.3 % (11.8-14.3); White Blood Cell 12.9 10^3/uL (4.4-10.8)
[2023-07-28 03:54] LABS: Anion Gap 10 (5-15); Carbon Dioxide 18 mmol/L (20-30); Chloride 119 mmol/L (98-107); Potassium 3.3 mmol/L (3.5-5.1); Sodium 147 mmol/L (136-145)
[2023-07-28 03:56] LABS: Calcium 7.8 mg/dL (8.7-10.4)
[2023-07-28 04:00] LABS: Glucose 101 mg/dL (74-106)
[2023-07-28 04:01] LABS: BUN/Creatinine Ratio 7.1 (10.0-20.0); Blood Urea Nitrogen 17 mg/dL (9-23)
[2023-07-28 08:06] LABS: CSF IgG Index 0.4 (0.0-0.7); CSF/Serum Alb. Index 5 (0-8); Immunoglobulin G, Serum 1866 mg/dL (586-1602); Serum Albumin 2.3 g/dL (3.9-4.9)
[2023-07-28] MEDS: POTASSIUM CHL 20MEQ/100ML 100 ML IV SCH (11:04)
[2023-07-28] MEDS ORDERED: CLINIMIX PER PHARMACY 0 ML IV SCH ×2 (14:45→15:45)
[2023-07-28 15:25] LABS: Base Excess -9.1 mmol/L (-2.0-2.0)
[2023-07-28] MEDS: ETOMIDATE (2MG/ML) 20ML VIAL IV ONE ×2 (15:43→15:50)
[2023-07-28] MEDS: ROCURONIUM 10MG/ML 10ML VIAL IV ONE ×2 (15:44→15:51)
[2023-07-28 16:00] LABS: Magnesium 1.4 mg/dL (1.6-2.6); Phosphorus 4.6 mg/dL (2.4-5.1)
[2023-07-28] MEDS: MIDAZOLAM DRIP 50 mg/50mL 50 ML IV SCH (16:00)
[2023-07-28] MEDS: fentaNYL Drip 2500mCg/250mlNS 250 ML IV SCH (16:13)
[2023-07-28] MEDS: fentaNYL Drip 2500mCg/250mlNS 250 ML IV ONE (16:16)
[2023-07-28 16:42] LABS: Chloride 120 mmol/L (98-107); Sodium 146 mmol/L (136-145)
[2023-07-28 16:43] LABS: Anion Gap 6 (5-15); Calcium 7.8 mg/dL (8.5-10.1); Carbon Dioxide 20 mmol/L (20-30)
[2023-07-28 16:48] LABS: BUN/Creatinine Ratio 7.4 (10.0-20.0); Blood Urea Nitrogen 17 mg/dL (9-23); Glucose 115 mg/dL (74-106)
[2023-07-28] MEDS ORDERED: Nepro With Carb Steady 1 Liter Bottle GT SCH (18:00)
[2023-07-28] MEDS: MAGNESIUM SULFATE 1GM/100ML 100 ML IV SCH (19:13)
[2023-07-28] MEDS: AMINO ACID INFUSION IN D10W 1,000 ML IV SCH (19:53)
[2023-07-28] MEDS ORDERED: MIDAZOLAM DRIP 50 mg/50mL 50 ML IV SCH (22:15)
[2023-07-29] VITALS (107 sets, daily range): BP systolic 114–161; BP diastolic 53–89; PULSE 73–93; RESP 12–21; TEMP 97.3–98.8; O2SAT 97–99
[2023-07-29 05:04] LABS: Alanine Aminotransferase 10 U/L (7-40); Alkaline Phosphatase 68 U/L (46-116); Anion Gap 8 (5-15); BUN/Creatinine Ratio 7.9 (10.0-20.0); Blood Urea Nitrogen 18 mg/dL (9-23); Calcium 7.7 mg/dL (8.7-10.4); Carbon Dioxide 18 mmol/L (20-30); Chloride 120 mmol/L (98-107); Glucose 80 mg/dL (74-106); Magnesium 1.8 mg/dL (1.6-2.6); Potassium 3.8 mmol/L (3.5-5.1); Sodium 146 mmol/L (136-145)
[2023-07-29 05:05] LABS: Albumin 2.5 g/dL (3.2-4.8); Aspartate Aminotransferase 51 U/L (13-40); Bilirubin, Total 0.3 mg/dL (0.2-1.0); Phosphorus 3.6 mg/dL (2.4-5.1); Total Protein 5.4 g/dL (5.7-8.2)
[2023-07-29] MEDS: POTASSIUM CHL 20MEQ/100ML 100 ML IV SCH (06:26)
[2023-07-29 08:00] LABS: Base Excess -8.2 mmol/L (-2.0-2.0)
[2023-07-29] MEDS: ENOXAPARIN SOD 100 MG/1 ML SYRINGE SC SCH (09:52)
[2023-07-29] MEDS: MAGNESIUM SULFATE 1GM/100ML 100 ML IV SCH (11:57)
[2023-07-29] MEDS: FLUCONAZOLE 200MG/100ML 100 ML IV ONE (17:43)
[2023-07-29] MEDS: FREE WATER GT SCH (17:55)
[2023-07-30] VITALS (106 sets, daily range): BP systolic 124–162; BP diastolic 54–78; PULSE 87–99; RESP 9–25; TEMP 97.8–98.6; O2SAT 96–100
[2023-07-30 03:39] LABS: Hematocrit 25.1 % (36.0-46.0); Hemoglobin 8.1 g/dL (12.2-16.2); Mean Corpuscular Hemoglobin 27.3 pg (28.0-32.0); Monocytes # (auto) 0.8 10 ^3/uL (0-1.3); Neutrophils # (auto) 8.4 10 ^3/uL (1.6-8.6); White Blood Cell 11.8 10^3/uL (4.4-10.8)
[2023-07-30 03:41] LABS: Basophils # (auto) 0.1 10 ^3/uL (0-0.2); Basophils % (auto) 0.9 % (0.0-2.0); Eosinophils # (auto) 0.2 10 ^3/uL (0-0.8); Eosinophils % (auto) 1.9 % (0.0-7.0); Lymphocytes # (auto) 2.3 10 ^3/uL (0.4-5.4); Lymphocytes % (auto) 19.6 % (10.0-50.0); Mean Corpuscular Hgb Conc. 32.4 g/dL (32.0-36.0); Mean Corpuscular Volume 84.1 fL (80.0-100.0); Monocytes % (auto) 6.5 % (0.0-12.0); Neutrophils % (auto) 71.1 % (37.0-80.0); Red Blood Cells 2.99 10^6/uL (4.0-5.20); Red Cell Distribution Width 16.1 % (11.8-14.3)
[2023-07-30 03:49] LABS: Chloride 118 mmol/L (98-107); Potassium 4.4 mmol/L (3.5-5.1); Sodium 145 mmol/L (136-145)
[2023-07-30 03:50] LABS: Anion Gap 8 (5-15); Carbon Dioxide 19 mmol/L (20-30)
[2023-07-30 03:55] LABS: BUN/Creatinine Ratio 8.8 (10.0-20.0); Blood Urea Nitrogen 21 mg/dL (9-23); Glucose 77 mg/dL (74-106)
[2023-07-30 07:24] LABS: Base Excess -10.2 mmol/L (-2.0-2.0)
[2023-07-30] MEDS: ENOXAPARIN SOD 60 MG/0.6 ML SYRINGE SC SCH (09:49)
[2023-07-30] MEDS: FLUCONAZOLE 200MG/100ML 100 ML IV SCH (09:50)
[2023-07-30] MEDS: levETIRAcetam 500 MG/5ML ORAL SOLN UD GT SCH (09:51)
[2023-07-30] MEDS: FUROSEMIDE 40 MG/4 ML VIAL IV ONE (12:07)
[2023-07-30] MEDS: FUROSEMIDE 100 MG/10ML VIAL IV ONE (20:41)
[2023-07-31] VITALS (111 sets, daily range): BP systolic 117–174; BP diastolic 57–87; PULSE 84–99; RESP 10–30; TEMP 97.7–98.5; O2SAT 97–100
[2023-07-31 07:22] LABS: Base Excess -8.2 mmol/L (-2.0-2.0)
[2023-07-31 08:37] LABS: Basophils # (auto) 0.1 10 ^3/uL (0-0.2); Basophils % (auto) 0.8 % (0.0-2.0); Eosinophils # (auto) 0.2 10 ^3/uL (0-0.8); Eosinophils % (auto) 1.5 % (0.0-7.0); Lymphocytes # (auto) 1.7 10 ^3/uL (0.4-5.4); Mean Corpuscular Hemoglobin 27.2 pg (28.0-32.0); Mean Corpuscular Hgb Conc. 32.4 g/dL (32.0-36.0); Mean Corpuscular Volume 84.1 fL (80.0-100.0); Monocytes # (auto) 0.7 10 ^3/uL (0-1.3)
[2023-07-31 08:40] LABS: Hematocrit 24.6 % (36.0-46.0); Lymphocytes % (auto) 15.5 % (10.0-50.0); Neutrophils # (auto) 8.6 10 ^3/uL (1.6-8.6); Neutrophils % (auto) 76.2 % (37.0-80.0); Red Blood Cells 2.92 10^6/uL (4.0-5.20); Red Cell Distribution Width 16.2 % (11.8-14.3); White Blood Cell 11.3 10^3/uL (4.4-10.8)
[2023-07-31 09:20] LABS: Chloride 114 mmol/L (98-107); Potassium 3.9 mmol/L (3.5-5.1); Sodium 141 mmol/L (136-145)
[2023-07-31 09:21] LABS: Anion Gap 9 (5-15); Carbon Dioxide 18 mmol/L (20-30)
[2023-07-31 09:22] LABS: Calcium 8.4 mg/dL (8.7-10.4)
[2023-07-31 09:26] LABS: Glucose 94 mg/dL (74-106)
[2023-07-31 09:27] LABS: Magnesium 1.9 mg/dL (1.6-2.6)
[2023-07-31 09:55] LABS: BUN/Creatinine Ratio 8.6 (10.0-20.0); Blood Urea Nitrogen 23 mg/dL (9-23)
[2023-07-31] MEDS: FREE WATER GT SCH (12:27)
[2023-07-31] MEDS: FUROSEMIDE 40 MG/4 ML VIAL IV ONE (16:51)
[2023-08-01] VITALS (106 sets, daily range): BP systolic 124–188; BP diastolic 58–87; PULSE 82–100; RESP 11–25; TEMP 98–98.7; O2SAT 97–100
[2023-08-01 04:00] LABS: Eosinophils # (auto) 0.2 10 ^3/uL (0-0.8); Nucleated Red Blood Cells % 0.1 %; Red Cell Distribution Width 16.1 % (11.8-14.3)
[2023-08-01 04:03] LABS: Basophils # (auto) 0.1 10 ^3/uL (0-0.2); Eosinophils % (auto) 1.4 % (0.0-7.0); Hematocrit 24.7 % (36.0-46.0); Hemoglobin 8.1 g/dL (12.2-16.2); Lymphocytes % (auto) 18.7 % (10.0-50.0); Mean Corpuscular Hemoglobin 27.4 pg (28.0-32.0); Mean Corpuscular Hgb Conc. 32.7 g/dL (32.0-36.0); Mean Corpuscular Volume 83.9 fL (80.0-100.0); Monocytes # (auto) 0.7 10 ^3/uL (0-1.3); Monocytes % (auto) 6.4 % (0.0-12.0); Neutrophils # (auto) 7.9 10 ^3/uL (1.6-8.6); Neutrophils % (auto) 72.5 % (37.0-80.0); Red Blood Cells 2.95 10^6/uL (4.0-5.20); White Blood Cell 10.9 10^3/uL (4.4-10.8)
[2023-08-01 04:06] LABS: Anion Gap 9 (5-15); Calcium 8.5 mg/dL (8.7-10.4); Carbon Dioxide 19 mmol/L (20-30); Chloride 114 mmol/L (98-107); Potassium 3.9 mmol/L (3.5-5.1); Sodium 142 mmol/L (136-145)
[2023-08-01 04:12] LABS: Blood Urea Nitrogen 25 mg/dL (9-23); Glucose 83 mg/dL (74-106)
[2023-08-01 07:44] LABS: Base Excess -8.9 mmol/L (-2.0-2.0)
[2023-08-01] MEDS: FUROSEMIDE 40 MG/4 ML VIAL IV SCH ×2 (10:45→22:09)
[2023-08-02] VITALS (97 sets, daily range): BP systolic 117–185; BP diastolic 59–108; PULSE 81–105; RESP 13–23; TEMP 97.7–98.4; O2SAT 96–100
[2023-08-02] MEDS: dilTIAZem 25 MG/5 ML VIAL IV ONE (06:22)
[2023-08-02] MEDS: Glucerna 1.2 Cal 1Liter BOTTLE GT SCH (06:32)
[2023-08-02 08:06] LABS: Base Excess -5.1 mmol/L (-2.0-2.0)
[2023-08-02] MEDS ORDERED: MORPHINE SULFATE INJ 2 MG/ml SYRG IV PRN (16:45)
[2023-08-02] MEDS: LABETALOL HCL 200 MG TAB PO ONE (18:22)
[2023-08-02] MEDS ORDERED: LABETALOL HCL 200 MG TAB PO SCH (22:00)
[2023-08-02] MEDS: LABETALOL HCL 200 MG TAB PO SCH (23:13)
[2023-08-03] VITALS (59 sets, daily range): BP systolic 127–181; BP diastolic 62–87; PULSE 73–84; RESP 11–24; TEMP 97.9–98.8; O2SAT 96–99
[2023-08-03 04:17] LABS: Basophils # (auto) 0.1 10 ^3/uL (0-0.2); Eosinophils # (auto) 0.1 10 ^3/uL (0-0.8); Hemoglobin 8.2 g/dL (12.2-16.2); Lymphocytes # (auto) 1.9 10 ^3/uL (0.4-5.4); Neutrophils # (auto) 10.2 10 ^3/uL (1.6-8.6); Neutrophils % (auto) 77.7 % (37.0-80.0); Red Cell Distribution Width 15.8 % (11.8-14.3); White Blood Cell 13.2 10^3/uL (4.4-10.8)
[2023-08-03 04:18] LABS: Basophils % (auto) 0.6 % (0.0-2.0); Eosinophils % (auto) 0.8 % (0.0-7.0); Hematocrit 24.9 % (36.0-46.0); Lymphocytes % (auto) 14.3 % (10.0-50.0); Mean Corpuscular Hemoglobin 27.2 pg (28.0-32.0); Mean Corpuscular Hgb Conc. 32.9 g/dL (32.0-36.0); Mean Corpuscular Volume 82.7 fL (80.0-100.0); Monocytes # (auto) 0.9 10 ^3/uL (0-1.3); Monocytes % (auto) 6.6 % (0.0-12.0)
[2023-08-03 04:25] LABS: Calcium 8.9 mg/dL (8.7-10.4); Chloride 112 mmol/L (98-107); Sodium 143 mmol/L (136-145)
[2023-08-03 04:26] LABS: Anion Gap 8 (5-15); Carbon Dioxide 23 mmol/L (20-30)
[2023-08-03 04:31] LABS: BUN/Creatinine Ratio 9.7 (10.0-20.0); Blood Urea Nitrogen 28 mg/dL (9-23); Glucose 80 mg/dL (74-106)
[2023-08-03 19:18] LABS: INR 1.09 (0.9-1.15); Partial Thromboplastin Time 36.4 SEC (24.5-34.5); Prothrombin Time 11.4 sec (9.3-11.8)
[2023-08-03] MEDS: LABETALOL HCL 200 MG TAB PO SCH (21:44)
[2023-08-04] VITALS (60 sets, daily range): BP systolic 104–177; BP diastolic 51–79; PULSE 68–82; RESP 11–26; TEMP 98.2–99; O2SAT 96–100
[2023-08-04 04:20] LABS: Basophils # (auto) 0.1 10 ^3/uL (0-0.2); Basophils % (auto) 0.5 % (0.0-2.0); Eosinophils # (auto) 0.1 10 ^3/uL (0-0.8); Eosinophils % (auto) 0.7 % (0.0-7.0); Hematocrit 23.9 % (36.0-46.0); Hemoglobin 7.7 g/dL (12.2-16.2); Lymphocytes % (auto) 11.9 % (10.0-50.0); Mean Corpuscular Hemoglobin 26.7 pg (28.0-32.0); Mean Corpuscular Volume 83.4 fL (80.0-100.0); Monocytes # (auto) 1.1 10 ^3/uL (0-1.3); Monocytes % (auto) 6.7 % (0.0-12.0); Neutrophils # (auto) 13.1 10 ^3/uL (1.6-8.6); Neutrophils % (auto) 80.2 % (37.0-80.0); Red Blood Cells 2.87 10^6/uL (4.0-5.20); Red Cell Distribution Width 16.3 % (11.8-14.3); White Blood Cell 16.4 10^3/uL (4.4-10.8)
[2023-08-04 04:33] LABS: Chloride 112 mmol/L (98-107); Potassium 4.2 mmol/L (3.5-5.1); Sodium 142 mmol/L (136-145)
[2023-08-04 04:34] LABS: Anion Gap 7 (5-15); Calcium 8.4 mg/dL (8.5-10.1); Carbon Dioxide 23 mmol/L (20-30)
[2023-08-04 04:39] LABS: Glucose 112 mg/dL (74-106)
[2023-08-04 04:40] LABS: BUN/Creatinine Ratio 12.2 (10.0-20.0); Blood Urea Nitrogen 35 mg/dL (9-23)
[2023-08-05] VITALS (69 sets, daily range): BP systolic 118–178; BP diastolic 58–82; PULSE 70–83; RESP 11–25; TEMP 98.1–99.9; O2SAT 96–100
[2023-08-05 03:52] LABS: Basophils # (auto) 0.1 10 ^3/uL (0-0.2); Eosinophils # (auto) 0.2 10 ^3/uL (0-0.8); White Blood Cell 13.4 10^3/uL (4.4-10.8)
[2023-08-05 03:55] LABS: Basophils % (auto) 0.8 % (0.0-2.0); Eosinophils % (auto) 1.2 % (0.0-7.0); Hematocrit 23.7 % (36.0-46.0); Hemoglobin 7.8 g/dL (12.2-16.2); Lymphocytes # (auto) 2.3 10 ^3/uL (0.4-5.4); Lymphocytes % (auto) 16.9 % (10.0-50.0); Mean Corpuscular Hemoglobin 27.7 pg (28.0-32.0); Mean Corpuscular Hgb Conc. 32.8 g/dL (32.0-36.0); Mean Corpuscular Volume 84.3 fL (80.0-100.0); Monocytes % (auto) 7.2 % (0.0-12.0); Neutrophils # (auto) 9.9 10 ^3/uL (1.6-8.6); Neutrophils % (auto) 73.9 % (37.0-80.0); Red Cell Distribution Width 16.3 % (11.8-14.3)
[2023-08-05 04:07] LABS: Chloride 113 mmol/L (98-107); Sodium 143 mmol/L (136-145)
[2023-08-05 04:08] LABS: Anion Gap 9 (5-15); Carbon Dioxide 21 mmol/L (20-30)
[2023-08-05 04:09] LABS: Calcium 8.7 mg/dL (8.7-10.4)
[2023-08-05 04:13] LABS: Blood Urea Nitrogen 33 mg/dL (9-23); Glucose 101 mg/dL (74-106)
[2023-08-05] MEDS: FUROSEMIDE 40 MG/4 ML VIAL IV SCH (06:38)
[2023-08-05] MEDS: amLODIPine BESYLATE 5 MG TAB PO ONE (16:31)
[2023-08-05] MEDS: B-COMPLEX W/ C & FOLIC ACID(NEPHROVITE TAB) PO ONE (16:31)
[2023-08-05] MEDS: LIDOCAINE 1% (LOCAL ANESTH.) PF 5ml SDV ID ONE (19:06)
[2023-08-06] VITALS (67 sets, daily range): BP systolic 104–174; BP diastolic 48–75; PULSE 66–80; RESP 11–18; TEMP 98.1–99.5; O2SAT 94–100
[2023-08-06 04:34] LABS: Anion Gap 7 (5-15); Carbon Dioxide 22 mmol/L (20-30); Chloride 112 mmol/L (98-107); Sodium 141 mmol/L (136-145)
[2023-08-06 04:36] LABS: Basophils # (auto) 0.1 10 ^3/uL (0-0.2); Basophils % (auto) 0.9 % (0.0-2.0); Calcium 8.8 mg/dL (8.7-10.4); Eosinophils # (auto) 0.2 10 ^3/uL (0-0.8); Eosinophils % (auto) 1.7 % (0.0-7.0); Hematocrit 24.5 % (36.0-46.0); Hemoglobin 7.8 g/dL (12.2-16.2); Lymphocytes # (auto) 2.2 10 ^3/uL (0.4-5.4); Lymphocytes % (auto) 16.7 % (10.0-50.0); Mean Corpuscular Hemoglobin 27.1 pg (28.0-32.0); Mean Corpuscular Volume 84.5 fL (80.0-100.0); Monocytes # (auto) 0.9 10 ^3/uL (0-1.3); Monocytes % (auto) 6.5 % (0.0-12.0); Neutrophils # (auto) 9.7 10 ^3/uL (1.6-8.6); Neutrophils % (auto) 74.2 % (37.0-80.0); Nucleated Red Blood Cells % 0.1 %
[2023-08-06 04:40] LABS: BUN/Creatinine Ratio 12.5 (10.0-20.0); Blood Urea Nitrogen 34 mg/dL (9-23); Glucose 121 mg/dL (74-106)
[2023-08-06 06:47] LABS: Base Excess -0.4 mmol/L (-2.0-2.0)
[2023-08-06] MEDS: B-COMPLEX W/ C & FOLIC ACID(NEPHROVITE TAB) PO SCH (10:24)
[2023-08-06] MEDS: amLODIPine BESYLATE 5 MG TAB PO SCH (10:26)
[2023-08-06] MEDS: ERTAPENEM SOD INJ 0.5 GM in SODIUM CHL 0.9% 50 ML IV ONE (14:35)
[2023-08-07] VITALS (62 sets, daily range): BP systolic 124–150; BP diastolic 62–74; PULSE 66–89; RESP 11–19; TEMP 99–99.7; O2SAT 99–100
[2023-08-07 07:08] LABS: Base Excess 1.1 mmol/L (-2.0-2.0)
[2023-08-07 07:13] LABS: Basophils # (auto) 0.1 10 ^3/uL (0-0.2); Eosinophils # (auto) 0.2 10 ^3/uL (0-0.8); Lymphocytes # (auto) 2.1 10 ^3/uL (0.4-5.4); Lymphocytes % (auto) 15.5 % (10.0-50.0); Monocytes # (auto) 0.9 10 ^3/uL (0-1.3)
[2023-08-07 07:14] LABS: Eosinophils % (auto) 1.6 % (0.0-7.0); Hematocrit 23.8 % (36.0-46.0); Hemoglobin 7.6 g/dL (12.2-16.2); Mean Corpuscular Hemoglobin 26.7 pg (28.0-32.0); Mean Corpuscular Hgb Conc. 32.1 g/dL (32.0-36.0); Mean Corpuscular Volume 83.1 fL (80.0-100.0); Monocytes % (auto) 6.8 % (0.0-12.0); Neutrophils # (auto) 10.1 10 ^3/uL (1.6-8.6); Neutrophils % (auto) 75.1 % (37.0-80.0); Red Blood Cells 2.86 10^6/uL (4.0-5.20); Red Cell Distribution Width 16.3 % (11.8-14.3); White Blood Cell 13.4 10^3/uL (4.4-10.8)
[2023-08-07 07:23] LABS: Anion Gap 7 (5-15); Carbon Dioxide 26 mmol/L (20-30); Chloride 110 mmol/L (98-107); Potassium 4.4 mmol/L (3.5-5.1); Sodium 143 mmol/L (136-145)
[2023-08-07 07:24] LABS: Calcium 8.2 mg/dL (8.7-10.4)
[2023-08-07 07:29] LABS: BUN/Creatinine Ratio 14.3 (10.0-20.0); Blood Urea Nitrogen 43 mg/dL (9-23); Glucose 111 mg/dL (74-106)
[2023-08-07] MEDS: ERTAPENEM SOD INJ 0.5 GM in SODIUM CHL 0.9% 50 ML IV SCH (11:20)
[2023-08-08] VITALS (58 sets, daily range): BP systolic 128–159; BP diastolic 54–78; PULSE 66–78; RESP 9–19; TEMP 98.1–99.1; O2SAT 100
[2023-08-08 03:28] LABS: Basophils # (auto) 0.1 10 ^3/uL (0-0.2); Eosinophils # (auto) 0.2 10 ^3/uL (0-0.8); Monocytes # (auto) 0.9 10 ^3/uL (0-1.3)
[2023-08-08 03:30] LABS: Basophils % (auto) 0.6 % (0.0-2.0); Eosinophils % (auto) 1.8 % (0.0-7.0); Hematocrit 22.3 % (36.0-46.0); Hemoglobin 7.3 g/dL (12.2-16.2); Lymphocytes # (auto) 2.3 10 ^3/uL (0.4-5.4); Lymphocytes % (auto) 17.1 % (10.0-50.0); Mean Corpuscular Hemoglobin 27.2 pg (28.0-32.0); Mean Corpuscular Hgb Conc. 32.8 g/dL (32.0-36.0); Monocytes % (auto) 6.6 % (0.0-12.0); Neutrophils # (auto) 9.9 10 ^3/uL (1.6-8.6); Neutrophils % (auto) 73.9 % (37.0-80.0); Red Blood Cells 2.69 10^6/uL (4.0-5.20); Red Cell Distribution Width 15.6 % (11.8-14.3); White Blood Cell 13.4 10^3/uL (4.4-10.8)
[2023-08-08 03:43] LABS: Alanine Aminotransferase 10 U/L (7-40); Albumin 2.9 g/dL (3.2-4.8); Alkaline Phosphatase 104 U/L (46-116); Anion Gap 6 (5-15); Aspartate Aminotransferase 64 U/L (13-40); BUN/Creatinine Ratio 14.5 (10.0-20.0); Bilirubin, Total < 0.2 mg/dL (0.2-1.0); Blood Urea Nitrogen 43 mg/dL (9-23); Calcium 8.5 mg/dL (8.7-10.4); Carbon Dioxide 26 mmol/L (20-30); Chloride 110 mmol/L (98-107); Glucose 122 mg/dL (74-106); Potassium 4.3 mmol/L (3.5-5.1); Sodium 142 mmol/L (136-145); Total Protein 6.8 g/dL (5.7-8.2)
[2023-08-09] VITALS (37 sets, daily range): BP systolic 118–149; BP diastolic 63–76; PULSE 67–78; RESP 11–20; TEMP 98.5–98.7; O2SAT 100
[2023-08-09 04:21] LABS: Basophils # (auto) 0.1 10 ^3/uL (0-0.2); Eosinophils # (auto) 0.3 10 ^3/uL (0-0.8); Eosinophils % (auto) 2.4 % (0.0-7.0); Hemoglobin 7.4 g/dL (12.2-16.2); Lymphocytes # (auto) 2.4 10 ^3/uL (0.4-5.4); Mean Corpuscular Volume 82.9 fL (80.0-100.0); Monocytes # (auto) 0.8 10 ^3/uL (0-1.3)
[2023-08-09 04:23] LABS: Basophils % (auto) 0.9 % (0.0-2.0); Hematocrit 22.6 % (36.0-46.0); Lymphocytes % (auto) 19.8 % (10.0-50.0); Mean Corpuscular Hemoglobin 27.1 pg (28.0-32.0); Mean Corpuscular Hgb Conc. 32.7 g/dL (32.0-36.0); Monocytes % (auto) 6.9 % (0.0-12.0); Neutrophils # (auto) 8.5 10 ^3/uL (1.6-8.6); Red Blood Cells 2.73 10^6/uL (4.0-5.20); Red Cell Distribution Width 15.9 % (11.8-14.3); White Blood Cell 12.1 10^3/uL (4.4-10.8)
[2023-08-09 04:38] LABS: Alanine Aminotransferase 11 U/L (7-40); Albumin 3.1 g/dL (3.2-4.8); Alkaline Phosphatase 112 U/L (46-116); Anion Gap 7 (5-15); Aspartate Aminotransferase 60 U/L (13-40); BUN/Creatinine Ratio 15.1 (10.0-20.0); Bilirubin, Total < 0.2 mg/dL (0.2-1.0); Blood Urea Nitrogen 45 mg/dL (9-23); Calcium 8.8 mg/dL (8.7-10.4); Carbon Dioxide 27 mmol/L (20-30); Chloride 110 mmol/L (98-107); Glucose 88 mg/dL (74-106); Potassium 4.8 mmol/L (3.5-5.1); Sodium 144 mmol/L (136-145)
[2023-08-09 07:08] LABS: Base Excess 2.3 mmol/L (-2.0-2.0)
[2023-08-09] MEDS ORDERED: MORPHINE SULFATE INJ 2 MG/ml SYRG IV PRN (13:15)
[2023-08-09] MEDS: MICAFUNGIN SODIUM 100 MG in SODIUM CHL 0.9% 100 ML IV ONE (16:46)
[2023-08-10] VITALS (53 sets, daily range): BP systolic 115–143; BP diastolic 62–77; PULSE 71–81; RESP 9–24; TEMP 98.4–100; O2SAT 97–100
[2023-08-10] MEDS: MICAFUNGIN SODIUM 100 MG in SODIUM CHL 0.9% 100 ML IV SCH (09:20)
[2023-08-10] MEDS: ETOMIDATE (2MG/ML) 20ML VIAL IV ONE ×2 (16:29→22:40)
[2023-08-10] MEDS: ROCURONIUM 10MG/ML 10ML VIAL IV ONE ×2 (16:30→22:40)
[2023-08-10] MEDS: SUCCINYLCHOLINE CHLORIDE 20 MG/ML 10ML VIAL IV ONE (16:30)
[2023-08-11] VITALS (68 sets, daily range): BP systolic 108–155; BP diastolic 55–79; PULSE 68–83; RESP 12–20; TEMP 98.2–100.8; O2SAT 99–100
[2023-08-11 03:58] LABS: Eosinophils # (auto) 0.3 10 ^3/uL (0-0.8); Monocytes # (auto) 0.8 10 ^3/uL (0-1.3); White Blood Cell 13.2 10^3/uL (4.4-10.8)
[2023-08-11 04:00] LABS: Basophils # (auto) 0.1 10 ^3/uL (0-0.2); Basophils % (auto) 1.1 % (0.0-2.0); Eosinophils % (auto) 1.9 % (0.0-7.0); Hematocrit 22.8 % (36.0-46.0); Hemoglobin 7.4 g/dL (12.2-16.2); Lymphocytes # (auto) 2.1 10 ^3/uL (0.4-5.4); Lymphocytes % (auto) 15.9 % (10.0-50.0); Mean Corpuscular Hemoglobin 26.7 pg (28.0-32.0); Mean Corpuscular Hgb Conc. 32.5 g/dL (32.0-36.0); Mean Corpuscular Volume 82.2 fL (80.0-100.0); Monocytes % (auto) 6.3 % (0.0-12.0); Neutrophils # (auto) 9.9 10 ^3/uL (1.6-8.6); Neutrophils % (auto) 74.8 % (37.0-80.0); Red Blood Cells 2.78 10^6/uL (4.0-5.20); Red Cell Distribution Width 15.6 % (11.8-14.3)
[2023-08-11 04:09] LABS: Chloride 111 mmol/L (98-107); Sodium 145 mmol/L (136-145)
[2023-08-11 04:10] LABS: Anion Gap 10 (5-15); Carbon Dioxide 24 mmol/L (20-30)
[2023-08-11 04:11] LABS: Calcium 8.8 mg/dL (8.7-10.4)
[2023-08-11 04:15] LABS: BUN/Creatinine Ratio 13.4 (10.0-20.0); Blood Urea Nitrogen 45 mg/dL (9-23); Glucose 124 mg/dL (74-106)
[2023-08-11] MEDS: ACETAMINOPHEN 325 MG TAB PO PRN (04:39)
[2023-08-11 07:23] LABS: Base Excess 0.7 mmol/L (-2.0-2.0)
[2023-08-11] MEDS ORDERED: SODIUM CHLORIDE LOCK 10 ML ONE (08:55)
[2023-08-11] MEDS ORDERED: diphenhdrAMINE HCL 50 MG/1 ML VL ONE (08:56)
[2023-08-11] MEDS ORDERED: fentaNYL CITRATE 100 MCG/2 ML VL ONE (08:56)
[2023-08-11] MEDS ORDERED: MIDAZOLAM HCL 5 MG/ML-1ML VIAL ONE (08:56)
[2023-08-11] MEDS: FUROSEMIDE 40 MG TAB PO SCH (10:22)
[2023-08-11] MEDS: MEROPENEM 500MG IVPB 50 ML IV SCH (17:35)
[2023-08-12] VITALS (62 sets, daily range): BP systolic 103–135; BP diastolic 54–69; PULSE 72–87; RESP 12–25; TEMP 98.8–99.5; O2SAT 100
[2023-08-12 04:07] LABS: Basophils # (auto) 0.1 10 ^3/uL (0-0.2); Hematocrit 21.7 % (36.0-46.0); Mean Corpuscular Volume 83.5 fL (80.0-100.0); Monocytes # (auto) 0.8 10 ^3/uL (0-1.3); White Blood Cell 14.3 10^3/uL (4.4-10.8)
[2023-08-12 04:09] LABS: Basophils % (auto) 0.7 % (0.0-2.0); Eosinophils # (auto) 0.4 10 ^3/uL (0-0.8); Eosinophils % (auto) 2.5 % (0.0-7.0); Lymphocytes # (auto) 2.1 10 ^3/uL (0.4-5.4); Lymphocytes % (auto) 14.9 % (10.0-50.0); Mean Corpuscular Hemoglobin 26.9 pg (28.0-32.0); Mean Corpuscular Hgb Conc. 32.3 g/dL (32.0-36.0); Monocytes % (auto) 5.4 % (0.0-12.0); Neutrophils % (auto) 76.5 % (37.0-80.0); Red Cell Distribution Width 15.4 % (11.8-14.3)
[2023-08-12 04:22] LABS: Albumin 3.1 g/dL (3.2-4.8); Alkaline Phosphatase 79 U/L (46-116); Anion Gap 9 (5-15); Aspartate Aminotransferase 50 U/L (13-40); BUN/Creatinine Ratio 12.9 (10.0-20.0); Blood Urea Nitrogen 44 mg/dL (9-23); Carbon Dioxide 25 mmol/L (20-30); Chloride 114 mmol/L (98-107); Glucose 92 mg/dL (74-106); Magnesium 2.3 mg/dL (1.6-2.6); Sodium 148 mmol/L (136-145)
[2023-08-12 04:23] LABS: Bilirubin, Total 0.2 mg/dL (0.2-1.0)
[2023-08-12 04:25] LABS: Alanine Aminotransferase 9 U/L (7-40)
[2023-08-12 04:31] LABS: INR 1.09 (0.9-1.15); Partial Thromboplastin Time 32.3 SEC (24.5-34.5); Prothrombin Time 11.4 sec (9.3-11.8)
[2023-08-12 05:02] LABS: Hypochromia Slight; Platelet Estimate Increased
[2023-08-12 06:59] LABS: Base Excess -1.3 mmol/L (-2.0-2.0)
[2023-08-12] MEDS ORDERED: D5W 5% 1,000 ML IV SCH (10:00)
[2023-08-12 10:46] LABS: Hematocrit 22.9 % (36.0-46.0); Hemoglobin 7.3 g/dL (12.2-16.2)
[2023-08-12 11:18] LABS: % Iron Saturation 13.3 % (15-50)
[2023-08-12] MEDS: FREE WATER GT SCH ×2 (13:18→21:41)
[2023-08-12] MEDS: Nepro With Carb Steady 1 Liter Bottle GT SCH (16:25)
[2023-08-12] MEDS: IRON SUCROSE COMPLEX 100 ML IV SCH (18:47)
[2023-08-12] MEDS: LABETALOL HCL 200 MG TAB PO SCH (21:41)
[2023-08-13] VITALS (95 sets, daily range): BP systolic 105–156; BP diastolic 60–80; PULSE 66–98; RESP 10–23; TEMP 97.5–100.3; O2SAT 90–100
[2023-08-13 04:15] LABS: Basophils # (auto) 0.1 10 ^3/uL (0-0.2); Eosinophils # (auto) 0.5 10 ^3/uL (0-0.8); Mean Corpuscular Volume 84.4 fL (80.0-100.0)
[2023-08-13 04:18] LABS: Eosinophils % (auto) 3.8 % (0.0-7.0); Lymphocytes # (auto) 1.9 10 ^3/uL (0.4-5.4); Lymphocytes % (auto) 14.5 % (10.0-50.0); Mean Corpuscular Hemoglobin 27.7 pg (28.0-32.0); Mean Corpuscular Hgb Conc. 32.8 g/dL (32.0-36.0); Monocytes # (auto) 0.9 10 ^3/uL (0-1.3); Monocytes % (auto) 6.7 % (0.0-12.0); Red Blood Cells 2.49 10^6/uL (4.0-5.20); Red Cell Distribution Width 15.6 % (11.8-14.3); White Blood Cell 13.4 10^3/uL (4.4-10.8)
[2023-08-13 04:25] LABS: Hemoglobin 6.9 g/dL (12.2-16.2)
[2023-08-13 04:33] LABS: Alanine Aminotransferase < 9 U/L (7-40); Alkaline Phosphatase 89 U/L (46-116); Anion Gap 6 (5-15); Aspartate Aminotransferase 45 U/L (13-40); BUN/Creatinine Ratio 13.1 (10.0-20.0); Bilirubin, Total < 0.2 mg/dL (0.2-1.0); Blood Urea Nitrogen 45 mg/dL (9-23); Calcium 8.8 mg/dL (8.5-10.1); Carbon Dioxide 27 mmol/L (20-30); Chloride 115 mmol/L (98-107); Glucose 113 mg/dL (74-106); Potassium 4.1 mmol/L (3.5-5.1); Sodium 148 mmol/L (136-145); Total Protein 6.7 g/dL (5.7-8.2)
[2023-08-13] MEDS ORDERED: ONDANSETRON HCL 4 MG/2 ML VIAL IV PRN (07:00)
[2023-08-13] MEDS: D5W 5% 1,000 ML IV SCH (07:00)
[2023-08-13 07:04] LABS: Folate (Folic Acid) 17.76 ng/mL (>5.38)
[2023-08-13 07:48] LABS: Base Excess -0.6 mmol/L (-2.0-2.0)
[2023-08-13] MEDS: METOCLOPRAMIDE HCL 5MG/ml INJ 2ml VIAL IV SCH (14:00)
[2023-08-13] MEDS: ROCURONIUM 10MG/ML 10ML VIAL IV ONE ×2 (16:25→17:44)
[2023-08-14] VITALS (82 sets, daily range): BP systolic 108–150; BP diastolic 56–79; PULSE 60–77; RESP 11–21; TEMP 96.9–98.4; O2SAT 99–100
[2023-08-14 04:49] LABS: Eosinophils # (auto) 0.3 10 ^3/uL (0-0.8); Hemoglobin 8.6 g/dL (12.2-16.2); Red Blood Cells 3.36 10^6/uL (4.0-5.20)
[2023-08-14 04:52] LABS: Basophils # (auto) 0.2 10 ^3/uL (0-0.2); Eosinophils % (auto) 2.1 % (0.0-7.0); Hematocrit 27.7 % (36.0-46.0); Lymphocytes # (auto) 1.7 10 ^3/uL (0.4-5.4); Lymphocytes % (auto) 10.4 % (10.0-50.0); Mean Corpuscular Hemoglobin 25.7 pg (28.0-32.0); Mean Corpuscular Hgb Conc. 31.1 g/dL (32.0-36.0); Mean Corpuscular Volume 82.5 fL (80.0-100.0); Monocytes # (auto) 0.7 10 ^3/uL (0-1.3); Monocytes % (auto) 4.5 % (0.0-12.0); Neutrophils # (auto) 13.1 10 ^3/uL (1.6-8.6); Nucleated Red Blood Cells % 0.1 %; Red Cell Distribution Width 18.5 % (11.8-14.3)
[2023-08-14 05:12] LABS: Alkaline Phosphatase 90 U/L (46-116); Anion Gap 9 (5-15); BUN/Creatinine Ratio 9.9 (10.0-20.0); Calcium 8.9 mg/dL (8.7-10.4); Carbon Dioxide 22 mmol/L (20-30); Chloride 114 mmol/L (98-107); Glucose 138 mg/dL (74-106); Magnesium 2.4 mg/dL (1.6-2.6); Potassium 3.8 mmol/L (3.5-5.1); Sodium 145 mmol/L (136-145)
[2023-08-14 05:13] LABS: Alanine Aminotransferase < 9 U/L (7-40); Albumin 2.9 g/dL (3.2-4.8); Aspartate Aminotransferase 47 U/L (13-40); Bilirubin, Total 0.2 mg/dL (0.2-1.0); Blood Urea Nitrogen 33 mg/dL (9-23)
[2023-08-14 05:14] LABS: Total Protein 6.9 g/dL (5.7-8.2)
[2023-08-14 06:40] LABS: Base Excess -2.4 mmol/L (-2.0-2.0)
[2023-08-14] MEDS: D5W 5% 1,000 ML IV SCH (13:45)
[2023-08-14] MEDS ORDERED: BACLOFEN 10 MG TAB PO PRN (15:15)
[2023-08-14] MEDS: FUROSEMIDE 40 MG/4 ML VIAL IV ONE (20:06)
[2023-08-15] VITALS (71 sets, daily range): BP systolic 116–144; BP diastolic 55–73; PULSE 69–96; RESP 14–21; TEMP 97.6–98.3; O2SAT 99–100
[2023-08-15 03:44] LABS: Hemoglobin 7.6 g/dL (12.2-16.2); White Blood Cell 16.5 10^3/uL (4.4-10.8)
[2023-08-15 03:48] LABS: Hematocrit 23.8 % (36.0-46.0); Mean Corpuscular Hemoglobin 25.6 pg (28.0-32.0); Mean Corpuscular Hgb Conc. 31.9 g/dL (32.0-36.0); Mean Corpuscular Volume 80.4 fL (80.0-100.0); Red Blood Cells 2.97 10^6/uL (4.0-5.20); Red Cell Distribution Width 18.2 % (11.8-14.3)
[2023-08-15 04:01] LABS: Basophils % (manual) 0 (0.0-2.0); Blast Cells 0; Metamyelocytes % 0; Myelocytes % 0; Promyelocytes % 0; Reactive Lymphocytes 0
[2023-08-15 04:05] LABS: Chloride 109 mmol/L (98-107); Potassium 3.4 mmol/L (3.5-5.1); Sodium 140 mmol/L (136-145)
[2023-08-15 04:06] LABS: Anion Gap 9 (5-15); Carbon Dioxide 22 mmol/L (20-30)
[2023-08-15 04:07] LABS: Calcium 8.4 mg/dL (8.7-10.4)
[2023-08-15 04:12] LABS: BUN/Creatinine Ratio 12.1 (10.0-20.0); Blood Urea Nitrogen 41 mg/dL (9-23); Glucose 133 mg/dL (74-106)
[2023-08-15] MEDS: FUROSEMIDE 40 MG/4 ML VIAL IV SCH ×2 (10:03→17:43)
[2023-08-15 10:27] LABS: Band Neutrophils % (manual) 4; Eosinophils % (manual) 2 (0-7); Lymphocytes % (manual) 11 (10.0-50.0); Monocytes % (manual) 4 (0-12); Platelet Estimate Increased
[2023-08-15] MEDS: FUROSEMIDE 40 MG/4 ML VIAL IV ONE (15:14)
[2023-08-15] MEDS: POTASSIUM CHL 20MEQ/100ML 100 ML IV ONE (15:14)
[2023-08-16] VITALS (47 sets, daily range): BP systolic 117–144; BP diastolic 58–72; PULSE 73–87; RESP 14–19; TEMP 98–98.9; O2SAT 98–100
[2023-08-16 04:00] LABS: Mean Corpuscular Hemoglobin 25.8 pg (28.0-32.0)
[2023-08-16 04:04] LABS: Hematocrit 23.3 % (36.0-46.0); Hemoglobin 7.5 g/dL (12.2-16.2); Mean Corpuscular Hgb Conc. 32.3 g/dL (32.0-36.0); Red Blood Cells 2.92 10^6/uL (4.0-5.20); Red Cell Distribution Width 17.6 % (11.8-14.3); White Blood Cell 16.5 10^3/uL (4.4-10.8)
[2023-08-16 04:07] LABS: Band Neutrophils % (manual) 0; Basophils % (manual) 0 (0.0-2.0); Blast Cells 0; Metamyelocytes % 0; Promyelocytes % 0; Reactive Lymphocytes 0
[2023-08-16 04:11] LABS: Anion Gap 9 (5-15); Carbon Dioxide 21 mmol/L (20-30); Chloride 105 mmol/L (98-107); Potassium 3.8 mmol/L (3.5-5.1)
[2023-08-16 04:13] LABS: Calcium 8.4 mg/dL (8.7-10.4)
[2023-08-16 04:17] LABS: Glucose 127 mg/dL (74-106)
[2023-08-16 04:18] LABS: Blood Urea Nitrogen 45 mg/dL (9-23)
[2023-08-16 04:20] LABS: Sodium 135 mmol/L (136-145)
[2023-08-16] MEDS: Nepro With Carb Steady 1 Liter Bottle GT SCH (06:58)
[2023-08-16 07:35] LABS: Eosinophils % (manual) 5 (0-7); Lymphocytes % (manual) 17 (10.0-50.0); Monocytes % (manual) 7 (0-12); Myelocytes % 1; Platelet Estimate Increased
[2023-08-16] MEDS ORDERED: D5W/SOD CHLO 0.9% 1,000 ML IV SCH (07:45)
[2023-08-17] VITALS (36 sets, daily range): BP systolic 122–144; BP diastolic 60–76; PULSE 64–76; RESP 13–36; TEMP 96.4–98.8; O2SAT 100
[2023-08-17 04:17] LABS: Hemoglobin 7.5 g/dL (12.2-16.2)
[2023-08-17 04:19] LABS: Mean Corpuscular Hgb Conc. 32.5 g/dL (32.0-36.0); Red Blood Cells 2.88 10^6/uL (4.0-5.20); Red Cell Distribution Width 17.3 % (11.8-14.3); White Blood Cell 14.5 10^3/uL (4.4-10.8)
[2023-08-17 04:20] LABS: Basophils % (manual) 0 (0.0-2.0); Blast Cells 0; Metamyelocytes % 0; Myelocytes % 0; Promyelocytes % 0; Reactive Lymphocytes 0
[2023-08-17 04:31] LABS: Alanine Aminotransferase 10 U/L (7-40); Albumin 2.7 g/dL (3.2-4.8); Alkaline Phosphatase 177 U/L (46-116); Anion Gap 9 (5-15); Aspartate Aminotransferase 36 U/L (13-40); BUN/Creatinine Ratio 11.7 (10.0-20.0); Bilirubin, Total 0.2 mg/dL (0.2-1.0); Blood Urea Nitrogen 51 mg/dL (9-23); Calcium 8.6 mg/dL (8.7-10.4); Carbon Dioxide 21 mmol/L (20-30); Chloride 105 mmol/L (98-107); Glucose 101 mg/dL (74-106); Magnesium 2.3 mg/dL (1.6-2.6); Potassium 3.9 mmol/L (3.5-5.1); Sodium 135 mmol/L (136-145); Total Protein 6.3 g/dL (5.7-8.2)
[2023-08-17 05:21] LABS: Anisocytosis Slight; Band Neutrophils % (manual) 1; Eosinophils % (manual) 7 (0-7); Lymphocytes % (manual) 18 (10.0-50.0); Monocytes % (manual) 5 (0-12); Ovalocytes FEW; Platelet Estimate Increased
[2023-08-17 05:49] LABS: INR 1.04 (0.9-1.15); Partial Thromboplastin Time 41.2 SEC (24.5-34.5); Prothrombin Time 10.9 sec (9.3-11.8)
[2023-08-17] MEDS ORDERED: SIMETHICONE 40 MG/0.6 ML ORAL DROP ONE (09:08)
[2023-08-17] MEDS: BUPIVACAINE W/ EPINEPH 0.5% INJ 50ML MDV IJ ONE (12:44)
[2023-08-17] MEDS ORDERED: fentaNYL CITRATE 100 MCG/2 ML VL ONE (13:14)
[2023-08-17] MEDS ORDERED: HYDROmorphone HCL 2 MG/ML VL/or syr ONE (13:14)
[2023-08-17] MEDS ORDERED: MIDAZOLAM HCL 2MG/2ML 2ml VIAL (1mg/ml) ONE (13:14)
[2023-08-17] MEDS ORDERED: PROPOFOL 10 MG/ML 20 ML IV ONE (13:29)
[2023-08-18] VITALS (38 sets, daily range): BP systolic 105–136; BP diastolic 57–74; PULSE 70–108; RESP 9–33; TEMP 97.8–99.1; O2SAT 99–100
[2023-08-18 03:41] LABS: Hematocrit 25.4 % (36.0-46.0); Hemoglobin 8.2 g/dL (12.2-16.2); Mean Corpuscular Hgb Conc. 32.4 g/dL (32.0-36.0)
[2023-08-18 03:44] LABS: Mean Corpuscular Hemoglobin 26.2 pg (28.0-32.0); Mean Corpuscular Volume 80.8 fL (80.0-100.0); Red Blood Cells 3.14 10^6/uL (4.0-5.20); Red Cell Distribution Width 16.7 % (11.8-14.3); White Blood Cell 14.2 10^3/uL (4.4-10.8)
[2023-08-18 03:50] LABS: Basophils % (manual) 0 (0.0-2.0); Blast Cells 0; Eosinophils % (manual) 0 (0-7); Monocytes % (manual) 0 (0-12); Myelocytes % 0; Promyelocytes % 0; Reactive Lymphocytes 0
[2023-08-18 03:57] LABS: Alanine Aminotransferase 27 U/L (7-40); Alkaline Phosphatase 481 U/L (46-116); Anion Gap 10 (5-15); Aspartate Aminotransferase 60 U/L (13-40); BUN/Creatinine Ratio 11.3 (10.0-20.0); Blood Urea Nitrogen 55 mg/dL (9-23); Calcium 8.6 mg/dL (8.7-10.4); Carbon Dioxide 18 mmol/L (20-30); Chloride 104 mmol/L (98-107); Glucose 308 mg/dL (74-106); Magnesium 2.4 mg/dL (1.6-2.6); Phosphorus 6.9 mg/dL (2.4-5.1); Potassium 4.9 mmol/L (3.5-5.1); Sodium 132 mmol/L (136-145)
[2023-08-18 03:58] LABS: Bilirubin, Total 0.2 mg/dL (0.2-1.0)
[2023-08-18 04:32] LABS: Anisocytosis Slight; Band Neutrophils % (manual) 2; Lymphocytes % (manual) 8 (10.0-50.0); Metamyelocytes % 1; Platelet Estimate Increased
[2023-08-18 04:33] LABS: Ovalocytes FEW
[2023-08-18 08:00] LABS: Base Excess -8.1 mmol/L (-2.0-2.0)
[2023-08-18] MEDS: SODIUM CHLORIDE 0.9% 1,000 ML IV SCH ×2 (10:23→10:45)
[2023-08-19] VITALS (38 sets, daily range): BP systolic 114–142; BP diastolic 58–73; PULSE 82–99; RESP 12–25; TEMP 97.1–99.2; O2SAT 96–100
[2023-08-19 04:29] LABS: Red Cell Distribution Width 17.7 % (11.8-14.3); White Blood Cell 19.5 10^3/uL (4.4-10.8)
[2023-08-19 04:32] LABS: Hematocrit 22.6 % (36.0-46.0); Hemoglobin 7.2 g/dL (12.2-16.2); Mean Corpuscular Hgb Conc. 31.8 g/dL (32.0-36.0); Mean Corpuscular Volume 81.8 fL (80.0-100.0); Red Blood Cells 2.76 10^6/uL (4.0-5.20)
[2023-08-19 04:46] LABS: Basophils % (manual) 0 (0.0-2.0); Blast Cells 0; Metamyelocytes % 0; Myelocytes % 0; Promyelocytes % 0; Reactive Lymphocytes 0
[2023-08-19 04:52] LABS: Alanine Aminotransferase 16 U/L (7-40); Albumin 2.7 g/dL (3.2-4.8); Alkaline Phosphatase 326 U/L (46-116); Anion Gap 11 (5-15); Aspartate Aminotransferase 29 U/L (13-40); BUN/Creatinine Ratio 11.9 (10.0-20.0); Blood Urea Nitrogen 61 mg/dL (9-23); Calcium 8.4 mg/dL (8.7-10.4); Carbon Dioxide 18 mmol/L (20-30); Chloride 108 mmol/L (98-107); Glucose 144 mg/dL (74-106); Potassium 3.8 mmol/L (3.5-5.1); Sodium 137 mmol/L (136-145)
[2023-08-19 04:53] LABS: Bilirubin, Total 0.2 mg/dL (0.2-1.0); Total Protein 6.1 g/dL (5.7-8.2)
[2023-08-19 05:14] LABS: Band Neutrophils % (manual) 10; Lymphocytes % (manual) 22 (10.0-50.0)
[2023-08-19 05:15] LABS: Eosinophils % (manual) 1 (0-7); Monocytes % (manual) 4 (0-12); Platelet Estimate Increased
[2023-08-19 09:48] LABS: Base Excess -9.6 mmol/L (-2.0-2.0)
[2023-08-19] MEDS: LINEZOLID 600MG/300ML 300 ML IV SCH (22:12)
[2023-08-19] MEDS: ceFAZolin 1GM/50ML 50 ML IV ONE (23:00)
[2023-08-20] VITALS (42 sets, daily range): BP systolic 95–156; BP diastolic 61–74; PULSE 75–90; RESP 12–20; TEMP 97.2–99.2; O2SAT 97–100
[2023-08-20 04:24] LABS: White Blood Cell 16.6 10^3/uL (4.4-10.8)
[2023-08-20 04:27] LABS: Hematocrit 21.5 % (36.0-46.0); Hemoglobin 7.1 g/dL (12.2-16.2); Mean Corpuscular Hemoglobin 26.9 pg (28.0-32.0); Mean Corpuscular Hgb Conc. 32.8 g/dL (32.0-36.0); Red Blood Cells 2.62 10^6/uL (4.0-5.20); Red Cell Distribution Width 17.5 % (11.8-14.3)
[2023-08-20 04:32] LABS: Chloride 108 mmol/L (98-107)
[2023-08-20 04:33] LABS: Anion Gap 12 (5-15); Carbon Dioxide 17 mmol/L (20-30); Potassium 3.9 mmol/L (3.5-5.1); Sodium 137 mmol/L (136-145)
[2023-08-20 04:34] LABS: Calcium 8.3 mg/dL (8.7-10.4)
[2023-08-20 04:36] LABS: INR 1.02 (0.9-1.15); Prothrombin Time 10.7 sec (9.3-11.8)
[2023-08-20 04:38] LABS: Band Neutrophils % (manual) 0; Basophils % (manual) 0 (0.0-2.0); Blast Cells 0; Metamyelocytes % 0; Promyelocytes % 0; Reactive Lymphocytes 0
[2023-08-20 04:39] LABS: BUN/Creatinine Ratio 12.3 (10.0-20.0); Blood Urea Nitrogen 68 mg/dL (9-23); Glucose 157 mg/dL (74-106)
[2023-08-20 06:52] LABS: Eosinophils % (manual) 4 (0-7); Lymphocytes % (manual) 9 (10.0-50.0); Monocytes % (manual) 5 (0-12); Myelocytes % 3; Platelet Estimate Adequate
[2023-08-20 08:16] LABS: Base Excess -9.2 mmol/L (-2.0-2.0)
[2023-08-20] MEDS ORDERED: SODIUM CHLORIDE LOCK 10 ML ONE (08:58)
[2023-08-20] MEDS ORDERED: diphenhdrAMINE HCL 50 MG/1 ML VL ONE (08:59)
[2023-08-20] MEDS: ceFAZolin 1GM/50ML 50 ML IV ONE (12:44)
[2023-08-20] MEDS: MIDAZOLAM HCL 5 MG/ML-1ML VIAL ONE (13:27)
[2023-08-20] MEDS: fentaNYL CITRATE 100 MCG/2 ML VL ONE (13:27)
[2023-08-20] MEDS: ROCURONIUM 10MG/ML 10ML VIAL IV ONE ×2 (13:28→13:32)
[2023-08-20] MEDS: CALCIUM ACETATE 667 MG CAP NG SCH (14:00)
[2023-08-20] MEDS: SODIUM BICARB 50mEq/50ml Vial 75 ML in SOD CHL 0.45% 1,000 ML IV SCH (15:19)
[2023-08-20] MEDS: LINEZOLID 600MG/300ML 300 ML IV SCH (21:00)
[2023-08-20] MEDS: ATORVASTATIN 20 MG TAB PO SCH (22:00)
[2023-08-21] VITALS (50 sets, daily range): BP systolic 125–158; BP diastolic 62–75; PULSE 73–90; RESP 12–21; TEMP 97.9–98.8; O2SAT 94–100
[2023-08-21 05:45] LABS: Albumin 2.5 g/dL (3.2-4.8); Alkaline Phosphatase 240 U/L (46-116); Anion Gap 8 (5-15); Aspartate Aminotransferase 31 U/L (13-40); BUN/Creatinine Ratio 11.9 (10.0-20.0); Bilirubin, Total 0.2 mg/dL (0.2-1.0); Blood Urea Nitrogen 65 mg/dL (9-23); Calcium 8.2 mg/dL (8.7-10.4); Carbon Dioxide 18 mmol/L (20-30); Chloride 111 mmol/L (98-107); Glucose 99 mg/dL (74-106); Potassium 3.8 mmol/L (3.5-5.1); Sodium 137 mmol/L (136-145); Total Protein 5.7 g/dL (5.7-8.2)
[2023-08-21 05:47] LABS: Alanine Aminotransferase < 9 U/L (7-40)
[2023-08-21] MEDS: Ensure Enlive Vanilla 8oz Bottle PO SCH (06:01)
[2023-08-21] MEDS: MEROPENEM 1GM IVPB 0 ML IV ONE (07:00)
[2023-08-21] MEDS: SODIUM BICARB 50mEq/50ml Vial 75 ML in SOD CHL 0.45% 1,000 ML IV SCH (11:30)
[2023-08-21] MEDS: MEROPENEM 500MG IVPB 50 ML IV SCH (17:27)
[2023-08-22] VITALS (68 sets, daily range): BP systolic 143–181; BP diastolic 64–97; PULSE 74–94; RESP 12–20; TEMP 97.4–98.8; O2SAT 93–99
[2023-08-22] MEDS: amLODIPine BESYLATE 5 MG TAB PO SCH (09:20)
[2023-08-23] VITALS (82 sets, daily range): BP systolic 127–181; BP diastolic 47–94; PULSE 74–103; RESP 10–26; TEMP 97.7–99.1; O2SAT 93–100
[2023-08-23 04:07] LABS: Hematocrit 23.5 % (36.0-46.0); Hemoglobin 7.6 g/dL (12.2-16.2); Mean Corpuscular Hemoglobin 26.4 pg (28.0-32.0); Mean Corpuscular Hgb Conc. 32.1 g/dL (32.0-36.0); Mean Corpuscular Volume 82.1 fL (80.0-100.0); Red Blood Cells 2.86 10^6/uL (4.0-5.20); Red Cell Distribution Width 17.4 % (11.8-14.3); White Blood Cell 15.8 10^3/uL (4.4-10.8)
[2023-08-23 04:19] LABS: Albumin 2.5 g/dL (3.2-4.8); Alkaline Phosphatase 232 U/L (46-116); Anion Gap 7 (5-15); Aspartate Aminotransferase 28 U/L (13-40); BUN/Creatinine Ratio 12.5 (10.0-20.0); Bilirubin, Total 0.2 mg/dL (0.2-1.0); Calcium 8.1 mg/dL (8.7-10.4); Carbon Dioxide 23 mmol/L (20-30); Chloride 106 mmol/L (98-107); Glucose 110 mg/dL (74-106); Potassium 3.5 mmol/L (3.5-5.1); Sodium 136 mmol/L (136-145); Total Protein 5.6 g/dL (5.7-8.2)
[2023-08-23 04:27] LABS: Basophils % (manual) 0 (0.0-2.0); Blast Cells 0; Metamyelocytes % 0; Promyelocytes % 0; Reactive Lymphocytes 0
[2023-08-23 04:33] LABS: Alanine Aminotransferase < 9 U/L (7-40); Blood Urea Nitrogen 55 mg/dL (9-23)
[2023-08-23 05:33] LABS: Anisocytosis Slight; Band Neutrophils % (manual) 1; Eosinophils % (manual) 7 (0-7); Lymphocytes % (manual) 17 (10.0-50.0); Monocytes % (manual) 5 (0-12); Myelocytes % 1; Platelet Estimate Adequate
[2023-08-23] MEDS ORDERED: ALBUTEROL SULF 2.5 MG/0.5ML(0.5%) NEB SOLN NEB PRN ×2 (07:30→09:30)
[2023-08-23] MEDS: POTASSIUM EFFERVESENT TAB 25 MEQ GT ONE (08:30)
[2023-08-23 09:24] LABS: Base Excess -0.4 mmol/L (-2.0-2.0)
[2023-08-23] MEDS ORDERED: IPRATROPIUM BROM 0.5 MG/2.5ML INH SOL NEB PRN (09:30)
[2023-08-23] MEDS: amLODIPine BESYLATE 5 MG TAB PO SCH (09:31)
[2023-08-23] MEDS: PANTOPRAZOLE 40 MG TAB PO SCH (10:00)
[2023-08-23] MEDS: hydrALAZINE HCL 20 MG/ML VL IV SCH (13:00)
[2023-08-23] MEDS: FUROSEMIDE 40 MG/4 ML VIAL IV ONE (15:51)
[2023-08-24] VITALS (41 sets, daily range): BP systolic 125–164; BP diastolic 68–86; PULSE 73–90; RESP 11–23; TEMP 97.1–98.2; O2SAT 95–100
[2023-08-24] MEDS ORDERED: levETIRAcetam 500 MG/5ML ORAL SOLN UD GT SCH (00:30)
[2023-08-24 05:47] LABS: Chloride 105 mmol/L (98-107); Potassium 3.8 mmol/L (3.5-5.1); Sodium 136 mmol/L (136-145)
[2023-08-24 05:48] LABS: Anion Gap 4 (5-15); Carbon Dioxide 27 mmol/L (20-30)
[2023-08-24 05:49] LABS: Calcium 8.3 mg/dL (8.7-10.4)
[2023-08-24 05:53] LABS: Glucose 119 mg/dL (74-106)
[2023-08-24 05:54] LABS: BUN/Creatinine Ratio 14.3 (10.0-20.0); Blood Urea Nitrogen 56 mg/dL (9-23); Magnesium 1.9 mg/dL (1.6-2.6)
[2023-08-24 05:55] LABS: Phosphorus 3.9 mg/dL (2.4-5.1)
[2023-08-24] MEDS: FAMOTIDINE 20 MG TAB GT SCH (10:28)
[2023-08-24 15:10] LABS: COVID19 ANTIGEN SOFIA FIA NEGATIVE (NEGATIVE)
[2023-08-25] VITALS (16 sets, daily range): BP systolic 128–153; BP diastolic 65–81; PULSE 73–90; RESP 12–17; TEMP 94.4–98.2; O2SAT 96–100
== END 2023-08-25 10:18 | DRG 5 ==
LOC: ER 17:48 → EDBD 17:48 → TELE 22:38 → CENTRAL 07-18 16:19 → ICU WEST 07-18 20:31 → TELE-CENTR 08-01 09:39 → ICU WEST 08-01 10:21 → DOU IN ICU 08-23 14:57
PROVIDERS: ADMIT Internal Medicine; ATTEND Anesthesiology
PROC: 5A1955Z Respiratory Ventilation, Greater than 96 Consecutive Hours (ICD-10-PCS; principal; 2023-07-18)
PROC: 0BH17EZ Insertion of Endotracheal Airway into Trachea, Via Natural or Artificial Opening (ICD-10-PCS; 2023-07-18)
PROC: 30233N1 Transfusion of Nonautologous Red Blood Cells into Peripheral Vein, Percutaneous Approach (ICD-10-PCS; 2023-07-18)
PROC: 02HV33Z Insertion of Infusion Device into Superior Vena Cava, Percutaneous Approach (ICD-10-PCS; 2023-07-19)
PROC: B548ZZA Ultrasonography of Superior Vena Cava, Guidance (ICD-10-PCS; 2023-07-19)
PROC: 009U3ZZ Drainage of Spinal Canal, Percutaneous Approach (ICD-10-PCS; 2023-07-22)
PROC: 5A09357 Assistance with Respiratory Ventilation, Less than 24 Consecutive Hours, Continuous Positive Airway Pressure (ICD-10-PCS; 2023-07-24)
PROC: 5A09357 Assistance with Respiratory Ventilation, Less than 24 Consecutive Hours, Continuous Positive Airway Pressure (ICD-10-PCS; 2023-07-27)
PROC: 0BH17EZ Insertion of Endotracheal Airway into Trachea, Via Natural or Artificial Opening (ICD-10-PCS; 2023-07-28)
PROC: 5A1955Z Respiratory Ventilation, Greater than 96 Consecutive Hours (ICD-10-PCS; 2023-07-28)
PROC: 02HV33Z Insertion of Infusion Device into Superior Vena Cava, Percutaneous Approach (ICD-10-PCS; 2023-08-05)
PROC: B548ZZA Ultrasonography of Superior Vena Cava, Guidance (ICD-10-PCS; 2023-08-05)
PROC: 0B110F4 Bypass Trachea to Cutaneous with Tracheostomy Device, Open Approach (ICD-10-PCS; 2023-08-17)
PROC: 0DH63UZ Insertion of Feeding Device into Stomach, Percutaneous Approach (ICD-10-PCS; 2023-08-20)
DX: A41.51 Sepsis due to Escherichia coli [E. coli] (principal); N17.0 Acute kidney failure with tubular necrosis; R65.21 Severe sepsis with septic shock; J69.0 Pneumonitis due to inhalation of food and vomit; G93.41 Metabolic encephalopathy; G93.1 Anoxic brain damage, not elsewhere classified; E44.0 Moderate protein-calorie malnutrition; E11.649 Type 2 diabetes mellitus with hypoglycemia without coma; D63.1 Anemia in chronic kidney disease; J96.01 Acute respiratory failure with hypoxia; E87.3 Alkalosis; I82.621 Acute embolism and thrombosis of deep veins of right upper extremity; N18.4 Chronic kidney disease, stage 4 (severe); J44.0 Chronic obstructive pulmonary disease with (acute) lower respiratory infection; N13.6 Pyonephrosis; E87.1 Hypo-osmolality and hyponatremia; Z16.12 Extended spectrum beta lactamase (ESBL) resistance; Z99.11 Dependence on respirator [ventilator] status; Z20.822 Contact with and (suspected) exposure to COVID-19; E83.51 Hypocalcemia; E86.0 Dehydration; E83.42 Hypomagnesemia; E87.6 Hypokalemia; G40.909 Epilepsy, unspecified, not intractable, without status epilepticus; I12.9 Hypertensive chronic kidney disease with stage 1 through stage 4 chronic kidney disease, or unspecified chronic kidney disease; B19.20 Unspecified viral hepatitis C without hepatic coma; E11.51 Type 2 diabetes mellitus with diabetic peripheral angiopathy without gangrene; N92.0 Excessive and frequent menstruation with regular cycle; E88.09 Other disorders of plasma-protein metabolism, not elsewhere classified; F15.10 Other stimulant abuse, uncomplicated; E83.39 Other disorders of phosphorus metabolism; N92.1 Excessive and frequent menstruation with irregular cycle; E11.22 Type 2 diabetes mellitus with diabetic chronic kidney disease; Z86.73 Personal history of transient ischemic attack (TIA), and cerebral infarction without residual deficits; Z79.02 Long term (current) use of antithrombotics/antiplatelets; Z79.82 Long term (current) use of aspirin; Z79.84 Long term (current) use of oral hypoglycemic drugs; Z79.899 Other long term (current) drug therapy; Z91.199 Patient's noncompliance with other medical treatment and regimen due to unspecified reason; Z68.31 Body mass index [BMI] 31.0-31.9, adult
CPT/HCPCS: 36415; 36569; 36600; 43239; 70450; 70551; 71045; 76705; 76775; 76856; 80048; 80053; 80307; 80320; 81001; 82042; 82140; 82306; 82542; 82570; 82607; 82728; 82746; 82784; 82805; 82945; 82962; 83036; 83516; 83520; 83540; 83550; 83605; 83615; 83735; 83880; 83970; 84100; 84156; 84157; 84300; 84484; 84702; 85007; 85014; 85018; 85025; 85027; 85045; 85610; 85730; 86160; 86225; 86235; 86256; 86703; 86706; 86709; 86803; 86850; 86900; 86901; 86920; 87040; 87070; 87077; 87081; 87086; 87088; 87186; 87205; 87340; 87426; 87493; 87529; 87899; 88108; 89051; 93970; 93971; 94002; 94003; 94640; 94660; 95819; 96365; 96366; 96367; 96368; 99291; C9113; G0378; J0330; J1335; J1450; J1756; J1815; J2185; J2248; J2250; J2543; J2704; J3480; P9047